=== PATIENT | female | born 1995 | race Caucasian/White ===

== ENCOUNTER 2016-10-29 19:19 | Emergency (ER) | payer BC ==
[2016-10-29 19:24] VITALS: TEMP 97.5
[2016-10-29] MEDS ORDERED: diphenhydrAMINE 50 MG/ML 1 ML VIAL IVP STA (19:57)
[2016-10-29] MEDS ORDERED: METOCLOPRAMIDE 5 MG/ML 2 ML VIAL IVP STA (19:57)
[2016-10-29] MEDS ORDERED: SODIUM CHLORIDE 0.9% 1,000 ML IV ONE (19:57)
--- NOTE | 2016-10-29 20:15 | ED ---
Headache HPI - General Chief Complaint: Headache Stated Complaint: Mirgraine /13 weeks Time Seen by Provider: 10/29/16 19:51 Source: RN notes reviewed Mode of arrival: ambulatory Limitations: no limitations - History of Present Illness Initial Comments: Patient is a 21-year-old female presents to the emergency room for evaluation of migraine headache. Patient states she has a history migraine headaches. Patient states she has been taking Tylenol [id number] with no relief of symptoms. Patient states she is having 5 out of 10 headache. Patient states this feels like her normal migraines. Patient denies neck pain. Patient denies fevers or chills. Patient states she can't get her migraine to go away. Patient does state she is 13 weeks . Patient is . Patient denies vaginal bleeding or abdominal pain. Patient denies chest pain or shortness of breath. Patient states she is nauseous but denies any vomiting. Patient denies recent head trauma. Patient denies changes in vision. - Related Data Home Medications Medication Instructions Recorded Confirmed Acetaminophen [Tylenol Extra 1,000 mg PO Q8H PRN 10/29/16 10/29/16 Strength] Gummies 2 tab PO DAILY 10/29/16 10/29/16 Allergies Allergy/AdvReac Type Severity Reaction Status Date / Time No Known Allergies Allergy Verified 10/29/16 19:40 Review of Systems ROS Statement: Those systems with pertinent positive or pertinent negative responses have been documented in the HPI. ROS Other: All systems not noted in ROS Statement are negative. Past Medical History Past Medical History: No Reported History Additional Past Medical History / Comment(s): MIGRAINES History of Any Multi-Drug Resistant Organisms: None Reported Past Surgical History: No Surgical Hx Reported Past Psychological History: Anxiety, Depression Smoking Status: Current every day smoker Past Alcohol Use History: None Reported Past Drug Use History: None Reported General Exam - General Exam Comments Initial Comments: sitting in exam room, no acute distress. Limitations: no limitations General appearance: alert, in no apparent distress Head exam: Present: atraumatic, normocephalic, normal inspection Eye exam: Present: normal appearance, PERRL, EOMI Pupils: Present: normal accommodation ENT exam: Present: normal exam Neck exam: Present: normal inspection Respiratory exam: Present: normal lung sounds bilaterally. Absent: respiratory distress Cardiovascular Exam: Present: regular rate, normal rhythm, normal heart sounds GI/Abdominal exam: Present: soft, normal bowel sounds. Absent: distended, tenderness, guarding, rebound, rigid Extremities exam: Present: normal inspection Back exam: Present: normal inspection Neurological exam: Present: alert, oriented X3, CN II-XII intact, normal gait Expanded Patient oriented to: Present: person, place, time Speech: Present: fluid speech Cranial nerves: EOM's Intact: Normal, Facial Sensation: Normal Sensory exam: Upper Extremity Light Touch: Normal, Lower Extremity Pin Prick: Normal Motor strength exam: RUE: 5, LUE: 5, RLE: 5, LLE: 5 Psychiatric exam: Present: normal affect, normal mood Skin exam: Present: warm, dry, intact, normal color. Absent: rash Course Vital Signs 10/29/16 10/29/16 19:20 21:24 Temperature 97.5 F L Pulse Rate 78 88 Respiratory 20 16 Rate Blood Pressure 113/56 99/52 O2 Sat by Pulse 100 Oximetry Medical Decision Making - Medical Decision Making patient is a 21-year-old female presents to the emergency room for evaluation of migraine headaches. Patient states this feels like her normal migraines. Patient given fluids and Reglan and Benadryl. Patient states she is feeling a lot better and would like to be discharged home. Return parameters discussed. Case discussed with Dr. Witt. Disposition Clinical Impression: Migraine Disposition: HOME SELF-CARE Condition: Good Instructions: Acute Headache (ED) Additional Instructions: Drink plenty of water. Take Tylenol as needed. Please follow up with primary care provider in 1-2 days. If any new symptom arises or symptoms worsen, return to ER as soon as possible. Referrals: Nidia Atkins DO [Primary Care Provider] - 1-2 days Time of Disposition: 20:54
[2016-10-29 21:50] VITALS: BP 99/52; PULSE 88; RESP 16
== END 2016-10-29 21:49 | disposition home or self-care (01) ==
LOC: EC 19:19
DX: O99.351 Diseases of the nervous system complicating pregnancy, first trimester (principal); G43.909 Migraine, unspecified, not intractable, without status migrainosus; O99.331 Smoking (tobacco) complicating pregnancy, first trimester; F17.200 Nicotine dependence, unspecified, uncomplicated; Z3A.13 13 weeks gestation of pregnancy; Z79.899 Other long term (current) drug therapy
CPT/HCPCS: 99282; 96374; 96375; 96361; J1200; J2765

== ENCOUNTER 2017-03-22 05:15 | Outpatient (CLI) | payer BC ==
[2017-03-22] MEDS ORDERED: LACTATED RINGERS 1,000 ML IV ONE (05:39)
[2017-03-22] MEDS ORDERED: BETAMET ACET-BETAMETH SOD PHOS 6 MG/ML VIAL IM SCH (05:45)
[2017-03-22] MEDS ORDERED: LACTATED RINGERS 1,000 ML IV SCH ×2 (05:45→08:30)
[2017-03-22 05:49] VITALS: RESP 16
[2017-03-22] MEDS: NIFEdipine 10 MG CAP PO PRN ×3 (05:56→06:40)
[2017-03-22 05:59] LABS: Appearance,Urine Clear (Clear); Bacteria,Urine Many /hpf; Bilirubin,Urine Negative (Negative); Glucose,Urine (UA) Negative (Negative); Ketones,Urine Negative (Negative); Leukocyte Esterase,Urine Large (Negative); Mucus,Urine Rare /hpf; Nitrite,Urine Negative (Negative); Particle Count 2502; Protein,Urine 1+ (Negative); RBC,Urine 2 /hpf (0-5); Specific Gravity,Urine 1.004 (1.001-1.035); Squamous Epithelial Cell,Urine 1 /hpf (0-4); UA Billing (MACRO vs. MICRO) MICRO; Urobilinogen,Urine <2.0 mg/dL (<2.0); WBC,Urine 52 /hpf (0-5)
[2017-03-22] MEDS ORDERED: ceFAZolin 2,000 MG in DEXTROSE/WATER 1 50ML.BAG IVPB STA (06:04)
[2017-03-22] MEDS ORDERED: ceFAZolin IN SWFI 2 GM/20 ML SYRINGE IVP ONE (06:15)
[2017-03-22] MEDS ORDERED: ACETAMINOPHEN TAB 500 MG TAB PO STA (06:32)
[2017-03-22 06:38] LABS: Basophils % (A) 0 %; CH 27.7; Eosinophils % (A) 0 %; HCT 34.3 % (34.0-46.0); Luc # (Auto) 0.21; Luc % (Auto) 1; Lymphocytes # (A) 2.1 k/uL (1.0-4.8); Lymphocytes % (A) 9 %; MCH 27.9 pg (25.0-35.0); MCHC 32.1 g/dL (31.0-37.0); MCV 86.8 fL (80.0-100.0); Mean Platelet Volume 9.3; Monocytes % (A) 4 %; Neutrophils # (A) 19.6 k/uL (1.3-7.7); Neutrophils % (A) 85 %; RBC 3.96 m/uL (3.80-5.40); WBC 22.9 k/uL (3.8-10.6); WBC (Perox) 24.86
[2017-03-22] MEDS ORDERED: cefTRIAXone IN SWFI 1,000 MG/10 ML SYRINGE IVP STA (07:12)
[2017-03-22] MEDS ORDERED: CALCIUM GLUCONATE 100 MG/ML 10 ML VIAL IV ONE (07:13)
[2017-03-22] MEDS ORDERED: MAGNESIUM SULFATE MG 6,000 MG in SODIUM CHLORIDE 0.9% 50 ML IVPB ONE (07:13)
[2017-03-22] MEDS ORDERED: MAGNESIUM SULFATE-WATER PMX 20 GM in WATER FOR INJECTION 1 500ML.BAG IV SCH (07:15)
[2017-03-22] MEDS ORDERED: MAGNESIUM SULFATE-D5W PMX 1 GM in DEXTROSE/WATER 1 100ML.BAG IVPB SCH (07:45)
[2017-03-22 08:24] VITALS: BP 117/59; PULSE 128; TEMP 98.8
--- NOTE | 2017-03-22 08:36 | P.HPOB ---
History of Present Illness H&P Date: 03/22/17 This is a 21-year-old white female 1 para 0 EDC 05/01/2017 at 34-2/7 weeks' gestation. Patient had intercourse last night at approximately 8:30. She woke this morning at approximate 5 AM with right flank pain, that radiated into the right lower abdomen. She presented to labor and delivery and was noted to be 1 cm dilated. Workup included a urinalysis which reveals small blood, large leukocyte esterase, 50 to WBCs, many bacteria. Patient had a low- grade temp on admission, 100.1, with a pulse of 110. She was given oral Tylenol. She was noted to be having uterine contractions and Procardia was given orally 3, at 0556, 0617, and 0640 hours. Despite the Procardia, cervical change was noted. Magnesium sulfate 6 g was given. Patient also received betamethasone at 0613 hours. Since that time, cervical change has been noted. Patient is currently 3 cm dilated, 70-80% effaced, -2 station, vertex presentation. Because our nursery will not accept newborns under the age of 35 weeks, the decision has made for maternal transfer. Past medical history is significant for anxiety and depression, as well as scoliosis. Past surgical history is negative. Social history patient is single, she admits to smoking cigarettes but stopped during . There is no alcohol or drug use. ALLERGIES none known. Current medications vitamins. Obstetrical history patient's blood type is A+, antibody screen negative. Rubella immune. VDRL testing, hepatitis B surface antigen, HIV testing all negative. Initial urine culture on 11/17/2016 is negative. One-hour Glucola 106. Group B strep cultures not yet performed. Pap smear was consistent with low grade ARACELY, plan is for repeat Pap smear . On exam this is a pleasant young female, 5 foot 4-1/2 inches, 182 pounds, blood pressure 126/85, pulse 104, crit temp 98.5, respirations 18. The general physical exam is within normal limits. The patient does have right flank pain to percussion. Abdomen is soft and nontender, infant is vertex to Peter's maneuvers. Maternal chest is clear, no murmur click or rub. Extremities reveal no edema. 2+ reflexes. Cervix is 3 cm dilated, 70% effaced, -2 station , vertex presentation. Uterine irritability is noted on the toco monitor. heart rate 160s with accelerations, consistent with reactive NST. Admitting labs include a white blood cell count of 22.9, hemoglobin 11.0, neutrophils 19.6. UA reveals large leukocyte esterase, many bacteria, 52 white blood cells, 1+ protein. Impression: 34-2/7 weeks intrauterine , right pyelonephritis, Rocephin and betamethasone given. Magnesium sulfate 6 g loading dose has been given, 2 g /h maintenance dose. Plan: I have discussed this case with Dr. Shepherd staff at [facility]. We will transfer the patient at this time. We will continue 2 g/h magnesium sulfate via transfer. Patient and her family are aware of our plan, and the recommendation for intensive care unit in the ascending that delivery occurs. The patient is currently comfortable, and I believe she is in stable condition for transfer at this time. Review of Systems Constitutional: Reports as per HPI Past Medical History Past Medical History: No Reported History Additional Past Medical History / Comment(s): MIGRAINES, anxiety and depression , scoliosis History of Any Multi-Drug Resistant Organisms: None Reported Past Surgical History: No Surgical Hx Reported Smoking Status: Never smoker Medications and Allergies Home Medications Medication Instructions Recorded Confirmed Type Gummies 2 tab PO DAILY 10/29/16 03/22/17 History Allergies Allergy/AdvReac Type Severity Reaction Status Date / Time No Known Allergies Allergy Verified 03/22/17 05:17 Exam - Vital Signs Vital signs: Vital Signs Temp Pulse Resp BP Pulse Ox 03/22/17 08:23 98.8 F 128 H 16 117/59 97 03/22/17 07:01 99.8 F H 03/22/17 06:41 103 H 16 124/65 03/22/17 06:26 100.1 F H 03/22/17 05:57 97 16 125/75 03/22/17 05:17 98.5 F 104 H 16 120/85 99 Intake and Output 03/21/17 03/22/17 03/22/17 22:59 06:59 14:59 Intake Total 1000 Output Total 250 Balance 1000 -250 Intake: Intake, IV Titration 1000 Amount Lactated Ringers 1,000 ml 1000 @ 999 mls/hr IV .Q1H1M ONE Rx#:[id number] Output: Urine 250 Other: # Voids 2 1 Weight 81.193 kg See dictation under HPI, please. Results Result Diagrams: 03/22/17 05:48 Abnormal Lab Results - Last 24 Hours (Table) 03/22/17 03/22/17 Range/Units 05:30 05:48 WBC 22.9 H (3.8-10.6) k/uL Hgb 11.0 L (11.4-16.0) gm/dL Neutrophils # 19.6 H (1.3-7.7) k/uL Urine Protein 1+ H (Negative) Urine Blood Small H (Negative) Ur Leukocyte Esterase Large H (Negative) Urine WBC 52 H (0-5) /hpf Urine Bacteria Many H (None) /hpf Urine Mucus Rare H (None) /hpf Assessment and Plan Plan: Betamethasone is given. Magnesium sulfate loading dose has been given, 2 g per hour. Rocephin has been given, 1 g. Maternal transfer to [facility] under the direction of Dr. Shepherd. All questions answered. Risks and benefits reviewed. Time with Patient: Greater than 30
== END 2017-03-22 08:58 | disposition short-term general hospital (02) ==
LOC: FBPOP 05:15
PROVIDERS: ATTEND Obstetrics & Gynecology
DX: O99.89 Other specified diseases and conditions complicating pregnancy, childbirth and the puerperium (principal); R10.31 Right lower quadrant pain; Z3A.34 34 weeks gestation of pregnancy
CPT/HCPCS: 59025; 99213; 96361; 96365; 96375; 85025; 81001; 87086; J0702; J0690; J0696; J3475 ×2

== ENCOUNTER 2017-12-14 08:22 | Emergency (ER) | payer BC, OTHER ==
[2017-12-14 08:31] VITALS: BP 117/80; TEMP 98.5
[2017-12-14] MEDS ORDERED: IPRATROPIUM-ALBUTEROL 3 ML NEB INHALATION STA (08:47)
--- NOTE | 2017-12-14 08:48 | ED ---
General Adult HPI - General Chief complaint: Upper Respiratory Infection Stated complaint: cough Time Seen by Provider: 12/14/17 08:42 Source: patient, RN notes reviewed Mode of arrival: ambulatory Limitations: no limitations - History of Present Illness Initial comments: Patient 22-year-old female presented to the emergency room today with a chief complaint of cough congestion over the last 2 weeks. She admits that time she' s had some sputum production. Patient denies any history of asthma. Patient denies any other complaints. Patient denies any recent fever, chills, shortness of breath, chest pain, back pain, abdominal pain, nausea or vomiting, numbness or tingling, headaches or visual changes, or any other complaints. - Related Data Home Medications Medication Instructions Recorded Confirmed Acetaminophen Tab [Tylenol Tab] 1,000 mg PO Q6HR PRN 12/14/17 12/14/17 Previous Rx's Medication Instructions Recorded Albuterol Inhaler [Ventolin Hfa 1 - 2 puff INHALATION Q4-6H PRN #1 12/14/17 Inhaler] inhaler Azithromycin [Zithromax Z-pack] 0 mg PO DIRECTED #6 tab 12/14/17 predniSONE 40 mg PO DAILY 5 Days tab 12/14/17 Allergies Allergy/AdvReac Type Severity Reaction Status Date / Time No Known Allergies Allergy Verified 12/14/17 08:47 Review of Systems ROS Statement: Those systems with pertinent positive or pertinent negative responses have been documented in the HPI. ROS Other: All systems not noted in ROS Statement are negative. Past Medical History Past Medical History: No Reported History Additional Past Medical History / Comment(s): MIGRAINES, anxiety and depression , scoliosis History of Any Multi-Drug Resistant Organisms: None Reported Past Surgical History: No Surgical Hx Reported Past Anesthesia/Blood Transfusion Reactions: No Reported Reaction Past Psychological History: Anxiety, Depression Smoking Status: Current every day smoker Past Alcohol Use History: None Reported Past Drug Use History: None Reported - Past Family History Mother Additional Family Medical History / Comment(s): Multiple Sclerosis General Exam - General Exam Comments Initial Comments: General: The patient is awake and alert, in no distress, and does not appear acutely ill. Eye: Pupils are equal, round and reactive to light, extra-ocular movements are intact. No nystagmus. There is normal conjunctiva bilaterally. No signs of icterus. Ears, nose, mouth and throat: There are moist mucous membranes and no oral lesions. Neck: The neck is supple, there is no tenderness or JVD. Cardiovascular: There is a regular rate and rhythm. No murmur, rub or gallop is appreciated. Respiratory: Mild expiratory wheeze bilaterally. respirations are non-labored, breath sounds are equal. No stridor, rales, or rhonchi. Musculoskeletal: Normal ROM, no tenderness. Sensation intact. Neurological: A&O x 3. CN II-XII intact, There are no obvious motor or sensory deficits. Coordination appears grossly intact. Speech is normal. Skin: Skin is warm and dry and no rashes or lesions are noted. Psychiatric: Cooperative, appropriate mood & affect, normal judgment. Limitations: no limitations Course Vital Signs 12/14/17 12/14/17 12/14/17 08:28 08:49 08:56 Temperature 98.5 F Pulse Rate 97 88 Respiratory 16 20 Rate Blood Pressure 117/80 O2 Sat by Pulse 98 Oximetry 12/14/17 09:03 Temperature Pulse Rate 80 Respiratory Rate Blood Pressure O2 Sat by Pulse Oximetry Medical Decision Making - Medical Decision Making Patient's chest x-rays negative for any sign of pneumonia. Patient resting comfortably. Does admit to improvement of her breathing treatments. Patient does have mild wheeze on expiration. Vitals are stable. Patient will be discharged home treated for bronchitis with azithromycin, steroids, and albuterol inhaler. Patient is advised follow-up family physician over the next 2 days returning if symptoms increase or worsen. Disposition Clinical Impression: Acute bronchitis Disposition: HOME SELF-CARE Condition: Good Instructions: Acute Bronchitis (ED) Additional Instructions: Please use medication as discussed. Please follow-up with family doctor in the next 2 days of symptoms have not improved. Please return to emergency room if the symptoms increase or worsen or for any other concerns. Prescriptions: Albuterol Inhaler [Ventolin Hfa Inhaler] 1 - 2 puff INHALATION Q4-6H PRN #1 inhaler PRN Reason: Cough Azithromycin [Zithromax Z-pack] 0 mg PO DIRECTED #6 tab predniSONE 40 mg PO DAILY 5 Days tab Is patient prescribed a controlled substance at d/c from ED?: No Referrals: Nidia Atkins DO [Primary Care Provider] - 1-2 days Time of Disposition: 09:24
[2017-12-14 08:49] VITALS: RESP 20
[2017-12-14 09:04] VITALS: PULSE 80
--- NOTE | 2017-12-14 09:06 | XR ---
EXAMINATION TYPE: XR chest 2V DATE OF EXAM: 12/14/2017 COMPARISON: 07/09/2014 HISTORY: Chest pain TECHNIQUE: Frontal and lateral views of the chest are obtained. FINDINGS: There is no focal air space opacity. No evidence for pneumothorax. No pleural effusion. The cardiac silhouette size is within normal limits. The osseous structures are grossly intact. IMPRESSION: 1. No acute cardiopulmonary process.
== END 2017-12-14 09:26 | disposition home or self-care (01) ==
LOC: EC 08:22
DX: J20.9 Acute bronchitis, unspecified (principal); F17.200 Nicotine dependence, unspecified, uncomplicated
CPT/HCPCS: 71046; 94640; 99283

== ENCOUNTER 2018-01-27 14:28 | Emergency (ER) | payer BC ==
[2018-01-27 14:33] VITALS: TEMP 98
--- NOTE | 2018-01-27 14:49 | ED ---
Female Urogenital HPI - General Chief complaint: Vaginal Bleeding Stated complaint: early /bleeding Time Seen by Provider: 01/27/18 14:37 Source: patient, RN notes reviewed, old records reviewed Mode of arrival: ambulatory Limitations: no limitations - History of Present Illness Initial comments: Patient is a 22-year-old female with treatment of vaginal bleeding. Patient states she had a positive test this Wednesday at the clinic. Her last menstrual period was January 15 or . Patient reports that she has had lower cramping and bleeding starting yesterday and today. Patient's had no fevers or chills. She denies any nausea or vomiting. She has complaints of diarrhea. Patient relates that her [employer] is Dr. Velázquez. She denies any other complaints at this time. - Related Data Home Medications Medication Instructions Recorded Confirmed Pedi Multivit No.19/Folic Acid 2 tab PO DAILY 01/27/18 01/27/18 [Children's Multi-Vit Gummies] Allergies Allergy/AdvReac Type Severity Reaction Status Date / Time No Known Allergies Allergy Verified 01/27/18 14:47 Review of Systems ROS Statement: Those systems with pertinent positive or pertinent negative responses have been documented in the HPI. ROS Other: All systems not noted in ROS Statement are negative. Past Medical History Past Medical History: No Reported History Additional Past Medical History / Comment(s): MIGRAINES, anxiety and depression , scoliosis History of Any Multi-Drug Resistant Organisms: None Reported Past Surgical History: No Surgical Hx Reported Past Anesthesia/Blood Transfusion Reactions: No Reported Reaction Past Psychological History: Anxiety, Depression Smoking Status: Current every day smoker Past Alcohol Use History: None Reported Past Drug Use History: None Reported - Past Family History Mother Additional Family Medical History / Comment(s): Multiple Sclerosis General Exam - General Exam Comments Initial Comments: This is a 22-year-old female. Alert and oriented. No significant distress. Limitations: no limitations General appearance: alert, in no apparent distress Head exam: Present: atraumatic, normocephalic, normal inspection Eye exam: Present: normal appearance, PERRL, EOMI. Absent: scleral icterus, conjunctival injection, periorbital swelling ENT exam: Present: normal exam, normal oropharynx, mucous membranes moist Neck exam: Present: normal inspection. Absent: tenderness, meningismus, lymphadenopathy Respiratory exam: Present: normal lung sounds bilaterally. Absent: respiratory distress, wheezes, rales, rhonchi, stridor Cardiovascular Exam: Present: regular rate, normal rhythm, normal heart sounds. Absent: systolic murmur, diastolic murmur, rubs, gallop, clicks GI/Abdominal exam: Present: soft, tenderness (suprapubic tenderness), normal bowel sounds. Absent: distended, guarding, rebound, rigid External exam: Present: normal external exam Speculum exam: Present: vaginal bleeding. Absent: normal speculum exam, erythema, vaginal discharge, cervical discharge, foreign body By manual exam: Present: normal by manual exam. Absent: cervical motion tenderness, adnexal tenderness, adnexal mass, uterine enlargement Neurological exam: Present: alert, oriented X3, CN II-XII intact Psychiatric exam: Present: normal affect, normal mood Skin exam: Present: warm, dry, intact, normal color. Absent: rash Course Vital Signs 01/27/18 14:32 Temperature 98.0 F Pulse Rate 86 Respiratory 20 Rate Blood Pressure 112/69 O2 Sat by Pulse 99 Oximetry Medical Decision Making - Medical Decision Making Patient is a 22-year-old female presents emergency department today with chief complaint of vaginal bleeding and cramping. She did have a positive test earlier this week. She is on how far along she is, last menstrual period was January 15- so very early . Patient hCG levels 22 at this time. She does have a positive blood type. Ultrasound was negative for intrauterine too early to exclude possibility of an ectopic . At this time Patient does have significant bleeding on exam. No adnexal tenderness noted. At this time Patient will be discharged with close follow-up with [employer]. As discussed repeating hCG level in 2 days. Patient agrees treatment plan will comply. Return parameters were discussed. - Lab Data Result diagrams: 01/27/18 14:50 Lab Results 01/27/18 01/27/18 01/27/18 Range/Units 14:50 14:50 14:50 WBC 6.7 (3.8-10.6) k/uL RBC 4.56 (3.80-5.40) m/uL Hgb 13.4 (11.4-16.0) gm/dL Hct 40.3 (34.0-46.0) % MCV 88.5 (80.0-100.0) fL MCH 29.3 (25.0-35.0) pg MCHC 33.1 (31.0-37.0) g/dL RDW 13.0 (11.5-15.5) % Plt Count 234 (150-450) k/uL Neutrophils % 70 % Lymphocytes % 21 % Monocytes % 5 % Eosinophils % 2 % Basophils % 0 % Neutrophils # 4.7 (1.3-7.7) k/uL Lymphocytes # 1.4 (1.0-4.8) k/uL Monocytes # 0.3 (0-1.0) k/uL Eosinophils # 0.1 (0-0.7) k/uL Basophils # 0.0 (0-0.2) k/uL HCG, Quant 22.1 mIU/mL Urine Color Urine Appearance (Clear) Urine pH (5.0-8.0) Ur Specific [place] (1.001-1.035) Urine Protein (Negative) Urine Glucose (UA) (Negative) Urine Ketones (Negative) Urine Blood (Negative) Urine Nitrite (Negative) Urine Bilirubin (Negative) Urine Urobilinogen (<2.0) mg/dL Ur Leukocyte Esterase (Negative) Urine RBC (0-5) /hpf Urine WBC (0-5) /hpf Ur Squamous Epith Cells (0-4) /hpf Urine Mucus (None) /hpf Blood Type A Positive Blood Type Recheck [facility] ONLY 01/27/18 Range/Units 14:50 WBC (3.8-10.6) k/uL RBC (3.80-5.40) m/uL Hgb (11.4-16.0) gm/dL Hct (34.0-46.0) % MCV (80.0-100.0) fL MCH (25.0-35.0) pg MCHC (31.0-37.0) g/dL RDW (11.5-15.5) % Plt Count (150-450) k/uL Neutrophils % % Lymphocytes % % Monocytes % % Eosinophils % % Basophils % % Neutrophils # (1.3-7.7) k/uL Lymphocytes # (1.0-4.8) k/uL Monocytes # (0-1.0) k/uL Eosinophils # (0-0.7) k/uL Basophils # (0-0.2) k/uL HCG, Quant mIU/mL Urine Color Yellow Urine Appearance Cloudy H (Clear) Urine pH 6.5 (5.0-8.0) Ur Specific [place] 1.021 (1.001-1.035) Urine Protein 1+ H (Negative) Urine Glucose (UA) Negative (Negative) Urine Ketones 1+ H (Negative) Urine Blood Large H (Negative) Urine Nitrite Negative (Negative) Urine Bilirubin Negative (Negative) Urine Urobilinogen <2.0 (<2.0) mg/dL Ur Leukocyte Esterase Negative (Negative) Urine RBC >182 H (0-5) /hpf Urine WBC 1 (0-5) /hpf Ur Squamous Epith Cells 10 H (0-4) /hpf Urine Mucus Few H (None) /hpf Blood Type Blood Type Recheck - Radiology Data Radiology results: report reviewed No visualized intrauterine at this time. Current differential considerations in the setting of a positive test exclude early , failed and I visualized ectopic . Recommend serial Patient she and ultrasound follow-up to ensure appearance a normal intrauterine with cardiac activity. There is around 1.2 cm lesion in the left adnexa adjacent to the left ovary which is should also be reassessed at that time. This suspected to represent hemorrhagic corpus luteum. Disposition Clinical Impression: Threatened miscarriage in early Disposition: HOME SELF-CARE Condition: Good Instructions: Threatened Miscarriage (ED) Additional Instructions: Patient advised to repeat hCG in the next 2 days. Return to emergency department if any alarming signs or symptoms occur. Is patient prescribed a controlled substance at d/c from ED?: No Referrals: Nidia Atkins DO [Primary Care Provider] - 1-2 days Elizabet Pitt MD [STAFF PHYSICIAN] - 1-2 days Arti Velázquez MD [STAFF PHYSICIAN] - 1-2 days Time of Disposition: 16:05
[2018-01-27 15:26] LABS: Basophils % (A) 0 %; Eosinophils # (A) 0.1 k/uL (0-0.7); Eosinophils % (A) 2 %; HCT 40.3 % (34.0-46.0); HGB 13.4 gm/dL (11.4-16.0); Lymphocytes # (A) 1.4 k/uL (1.0-4.8); Lymphocytes % (A) 21 %; MCH 29.3 pg (25.0-35.0); MCHC 33.1 g/dL (31.0-37.0); MCV 88.5 fL (80.0-100.0); Mean Platelet Volume 7.2; Monocytes # (A) 0.3 k/uL (0-1.0); Monocytes % (A) 5 %; Neutrophils # (A) 4.7 k/uL (1.3-7.7); Neutrophils % (A) 70 %; Platelet Count 234 k/uL (150-450); RBC 4.56 m/uL (3.80-5.40); WBC 6.7 k/uL (3.8-10.6)
[2018-01-27 15:42] LABS: Appearance,Urine Cloudy (Clear); Bilirubin,Urine Negative (Negative); Blood,Urine Large (Negative); Color,Urine Yellow; Glucose,Urine (UA) Negative (Negative); Ketones,Urine 1+ (Negative); Leukocyte Esterase,Urine Negative (Negative); Mucus,Urine Few /hpf; Nitrite,Urine Negative (Negative); PH, Urine 6.5 (5.0-8.0); Protein,Urine 1+ (Negative); RBC,Urine >182 /hpf (0-5); Specific Gravity,Urine 1.021 (1.001-1.035); Squamous Epithelial Cell,Urine 10 /hpf (0-4); Urobilinogen,Urine <2.0 mg/dL (<2.0); WBC,Urine 1 /hpf (0-5)
--- NOTE | 2018-01-27 16:00 | US ---
EXAMINATION TYPE: Ultrasound OB <= 14 weeks transvaginal DATE OF EXAM: 01/27/2018 COMPARISON: NONE CLINICAL HISTORY: 27-year-old female vaginal bleeding in . Pt states vaginal bleeding that s tarted today, pt states two recent abnormal periods (very light), most recent was 9-15-18, +home preg yaniv test EXAM PERFORMED: Transvaginal (TV) and Transabdominal (TA) FINDINGS: EXAM MEASUREMENTS: GESTATIONAL AGE / DATING Physician Established: Not yet established Dates by LMP: (1 weeks/5 days) EDC: 10/22/2018 Dates by First Scan: No prior Dates by Current Scan for: No IUP seen at this time MATERNAL ANATOMY Uterus: 6.0 x 3.2 x 3.7 cm Right Ovary: 2.1 x 1.5 x 1.2 cm Left Ovary: 2.0 x 1.4 x 1.4 cm Post CDS / Adnexa: Within left adnexa, just adjacent to left ovary is a hypoechoic lesion = 1.1 x 1.0 x 1.2 cm/ unknown etiology, possible corpus luteum. Presence of free fluid: No Presence of corpus luteal cyst: No GESTATION / SURVEY IUP: No IUP seen at this time Date of LMP: 01/15/2018 Beta HcG (if available): Not available at this time IMPRESSION: 1. No visualized intrauterine at this time. Current differential considerations in the sett ing of a positive test include early , failed , and nonvisualized ectopic . 2. Recommend serial beta hCG and ultrasound follow-up to ensure the appearance of a normal intrauteri ne with cardiac activity. 3. A round 1.2 cm lesion in the left adnexa adjacent to the left ovary should also be reassessed at t hat time. This is suspected to represent a hemorrhagic corpus luteum.
--- NOTE | 2018-01-27 16:08 | ED ---
Medical Decision Making - Medical Decision Making General completed to the chart to write a prescription for repeat HCG ab levels. - Lab Data Result diagrams: 01/27/18 14:50 Lab Results 01/27/18 01/27/18 01/27/18 Range/Units 14:50 14:50 14:50 WBC 6.7 (3.8-10.6) k/uL RBC 4.56 (3.80-5.40) m/uL Hgb 13.4 (11.4-16.0) gm/dL Hct 40.3 (34.0-46.0) % MCV 88.5 (80.0-100.0) fL MCH 29.3 (25.0-35.0) pg MCHC 33.1 (31.0-37.0) g/dL RDW 13.0 (11.5-15.5) % Plt Count 234 (150-450) k/uL Neutrophils % 70 % Lymphocytes % 21 % Monocytes % 5 % Eosinophils % 2 % Basophils % 0 % Neutrophils # 4.7 (1.3-7.7) k/uL Lymphocytes # 1.4 (1.0-4.8) k/uL Monocytes # 0.3 (0-1.0) k/uL Eosinophils # 0.1 (0-0.7) k/uL Basophils # 0.0 (0-0.2) k/uL HCG, Quant 22.1 mIU/mL Urine Color Urine Appearance (Clear) Urine pH (5.0-8.0) Ur Specific [place] (1.001-1.035) Urine Protein (Negative) Urine Glucose (UA) (Negative) Urine Ketones (Negative) Urine Blood (Negative) Urine Nitrite (Negative) Urine Bilirubin (Negative) Urine Urobilinogen (<2.0) mg/dL Ur Leukocyte Esterase (Negative) Urine RBC (0-5) /hpf Urine WBC (0-5) /hpf Ur Squamous Epith Cells (0-4) /hpf Urine Mucus (None) /hpf Blood Type A Positive Blood Type Recheck [facility] ONLY 01/27/18 Range/Units 14:50 WBC (3.8-10.6) k/uL RBC (3.80-5.40) m/uL Hgb (11.4-16.0) gm/dL Hct (34.0-46.0) % MCV (80.0-100.0) fL MCH (25.0-35.0) pg MCHC (31.0-37.0) g/dL RDW (11.5-15.5) % Plt Count (150-450) k/uL Neutrophils % % Lymphocytes % % Monocytes % % Eosinophils % % Basophils % % Neutrophils # (1.3-7.7) k/uL Lymphocytes # (1.0-4.8) k/uL Monocytes # (0-1.0) k/uL Eosinophils # (0-0.7) k/uL Basophils # (0-0.2) k/uL HCG, Quant mIU/mL Urine Color Yellow Urine Appearance Cloudy H (Clear) Urine pH 6.5 (5.0-8.0) Ur Specific [place] 1.021 (1.001-1.035) Urine Protein 1+ H (Negative) Urine Glucose (UA) Negative (Negative) Urine Ketones 1+ H (Negative) Urine Blood Large H (Negative) Urine Nitrite Negative (Negative) Urine Bilirubin Negative (Negative) Urine Urobilinogen <2.0 (<2.0) mg/dL Ur Leukocyte Esterase Negative (Negative) Urine RBC >182 H (0-5) /hpf Urine WBC 1 (0-5) /hpf Ur Squamous Epith Cells 10 H (0-4) /hpf Urine Mucus Few H (None) /hpf Blood Type Blood Type Recheck Disposition Clinical Impression: Threatened miscarriage in early Disposition: HOME SELF-CARE Condition: Good Instructions: Threatened Miscarriage (ED) Additional Instructions: Patient advised to repeat hCG in the next 2 days. Return to emergency department if any alarming signs or symptoms occur. Is patient prescribed a controlled substance at d/c from ED?: No Referrals: Elizabet Pitt MD [STAFF PHYSICIAN] - 1-2 days Arti Velázquez MD [STAFF PHYSICIAN] - 1-2 days Nidia Atkins DO [Primary Care Provider] - 1-2 days
[2018-01-27 16:38] VITALS: BP 108/52; PULSE 75; RESP 116
== END 2018-01-27 16:38 | disposition home or self-care (01) ==
LOC: EC 14:28
DX: O20.0 Threatened abortion (principal); O99.89 Other specified diseases and conditions complicating pregnancy, childbirth and the puerperium; R19.7 Diarrhea, unspecified; O99.331 Smoking (tobacco) complicating pregnancy, first trimester; F17.200 Nicotine dependence, unspecified, uncomplicated; Z3A.01 Less than 8 weeks gestation of pregnancy
CPT/HCPCS: 36415; 76801; 76817; 81001; 84702; 85025; 86900; 86901; 99284

== ENCOUNTER → 2018-01-29 | Outpatient (CLI) | payer BC | END | disposition home or self-care (01) | LOC: RADXRMAIN 14:43 | PROVIDERS: ATTEND Physician Assistant Medical | DX: Z53.9 Procedure and treatment not carried out, unspecified reason (principal) ==

== ENCOUNTER 2018-02-01 22:44 | Emergency (ER) | payer BC ==
[2018-02-01] MEDS ORDERED: MORPHINE SULFATE 4 MG/ML SYRINGE IV STA (23:07)
--- NOTE | 2018-02-01 23:44 | ED ---
Abdominal Pain HPI - General Chief Complaint: Abdominal Pain Stated Complaint: Pelvic Pain Time Seen by Provider: 02/01/18 22:50 Source: patient Mode of arrival: ambulatory Limitations: no limitations - History of Present Illness MD Complaint: abdominal pain Onset/Timin -: hour(s) Location: LLQ Radiation: none Migration to: no migration Severity: severe Quality: cramping, sharp Consistency: intermittent Improves With: nothing Worsens With: nothing Associated Symptoms: denies other symptoms - Related Data Home Medications Medication Instructions Recorded Confirmed Pedi Multivit No.19/Folic Acid 2 tab PO DAILY 01/27/18 02/01/18 [Children's Multi-Vit Gummies] Ibuprofen [Motrin Ib] 400 mg PO Q6HR PRN 02/01/18 02/01/18 Previous Rx's Medication Instructions Recorded Sulfamethox-Tmp 800-160Mg [Bactrim 1 each PO Q12HR #6 tab 02/02/18 Ds] Allergies Allergy/AdvReac Type Severity Reaction Status Date / Time No Known Allergies Allergy Verified 02/01/18 22:54 Review of Systems ROS Statement: Those systems with pertinent positive or pertinent negative responses have been documented in the HPI. ROS Other: All systems not noted in ROS Statement are negative. Constitutional: Denies: fever, chills Respiratory: Denies: cough, dyspnea Cardiovascular: Denies: chest pain, palpitations, edema Gastrointestinal: Reports: abdominal pain. Denies: nausea, vomiting, diarrhea, melena, hematochezia Genitourinary: Denies: dysuria, hematuria, discharge, abnormal menses Musculoskeletal: Denies: back pain Skin: Denies: rash Neurological: Denies: headache Hematological/Lymphatic: Denies: easy bleeding Past Medical History Past Medical History: No Reported History Additional Past Medical History / Comment(s): MIGRAINES, anxiety and depression , scoliosis History of Any Multi-Drug Resistant Organisms: None Reported Past Surgical History: No Surgical Hx Reported Past Anesthesia/Blood Transfusion Reactions: No Reported Reaction Past Psychological History: Anxiety, Depression Smoking Status: Current every day smoker Past Alcohol Use History: None Reported Past Drug Use History: None Reported - Past Family History Mother Additional Family Medical History / Comment(s): Multiple Sclerosis General Exam Limitations: no limitations General appearance: alert, in no apparent distress Respiratory exam: Present: normal lung sounds bilaterally. Absent: respiratory distress, wheezes, rales, rhonchi, stridor Cardiovascular Exam: Present: regular rate, normal rhythm, normal heart sounds. Absent: systolic murmur, diastolic murmur, rubs, gallop GI/Abdominal exam: Present: soft, normal bowel sounds. Absent: distended, tenderness, guarding, rebound, rigid, mass, pulsatile mass, hernia Extremities exam: Present: normal inspection, normal capillary refill. Absent: pedal edema, calf tenderness Back exam: Present: normal inspection. Absent: CVA tenderness (R), CVA tenderness (L) Neurological exam: Present: alert Skin exam: Present: warm, dry, intact, normal color. Absent: rash Course Vital Signs 02/01/18 02/02/18 22:46 00:06 Temperature 97.8 F Pulse Rate 100 62 Respiratory 18 18 Rate Blood Pressure 118/63 112/65 O2 Sat by Pulse 97 98 Oximetry Medical Decision Making - Lab Data Result diagrams: 02/01/18 23:20 02/01/18 23:20 Lab Results 02/01/18 02/01/18 02/01/18 Range/Units 22:10 23:20 23:20 WBC 11.5 H (3.8-10.6) k/uL RBC 5.15 (3.80-5.40) m/uL Hgb 14.7 (11.4-16.0) gm/dL Hct 45.5 (34.0-46.0) % MCV 88.4 (80.0-100.0) fL MCH 28.5 (25.0-35.0) pg MCHC 32.3 (31.0-37.0) g/dL RDW 12.9 (11.5-15.5) % Plt Count 281 (150-450) k/uL Neutrophils % 73 % Lymphocytes % 21 % Monocytes % 4 % Eosinophils % 1 % Basophils % 0 % Neutrophils # 8.4 H (1.3-7.7) k/uL Lymphocytes # 2.4 (1.0-4.8) k/uL Monocytes # 0.4 (0-1.0) k/uL Eosinophils # 0.1 (0-0.7) k/uL Basophils # 0.0 (0-0.2) k/uL Sodium 140 (137-145) mmol/L Potassium 3.7 (3.5-5.1) mmol/L Chloride 107 (98-107) mmol/L Carbon Dioxide 20 L (22-30) mmol/L Anion Gap 13 mmol/L BUN 13 (7-17) mg/dL Creatinine 0.71 (0.52-1.04) mg/dL Est GFR (CKD-EPI)AfAm >90 (>60 ml/min/1.73 sqM) Est GFR (CKD-EPI)NonAf >90 (>60 ml/min/1.73 sqM) Glucose 90 (74-99) mg/dL Calcium 10.8 H (8.4-10.2) mg/dL Total Bilirubin 0.6 (0.2-1.3) mg/dL AST 19 (14-36) U/L ALT 19 (9-52) U/L Alkaline Phosphatase 103 (38-126) U/L Total Protein 8.4 H (6.3-8.2) g/dL Albumin 4.9 (3.5-5.0) g/dL HCG, Quant <2.4 mIU/mL Urine Color Yellow Urine Appearance Cloudy H (Clear) Urine pH 6.0 (5.0-8.0) Ur Specific [place] 1.031 (1.001-1.035) Urine Protein 2+ H (Negative) Urine Glucose (UA) Negative (Negative) Urine Ketones 1+ H (Negative) Urine Blood Large H (Negative) Urine Nitrite Negative (Negative) Urine Bilirubin Negative (Negative) Urine Urobilinogen <2.0 (<2.0) mg/dL Ur Leukocyte Esterase Small H (Negative) Urine RBC >182 H (0-5) /hpf Urine WBC 16 H (0-5) /hpf Ur Squamous Epith Cells 41 H (0-4) /hpf Urine Bacteria Occasional H (None) /hpf Urine Mucus Many H (None) /hpf Urine Sperm Rare (None) /hpf Disposition Clinical Impression: Urinary tract infection Disposition: HOME SELF-CARE Condition: Good Instructions: Urinary Tract Infection in Women (ED) Prescriptions: Sulfamethox-Tmp 800-160Mg [Bactrim Ds] 1 each PO Q12HR #6 tab Is patient prescribed a controlled substance at d/c from ED?: No Referrals: Nidia Atkins DO [Primary Care Provider] - 1-2 days
[2018-02-01 23:46] LABS: Basophils % (A) 0 %; Eosinophils # (A) 0.1 k/uL (0-0.7); Eosinophils % (A) 1 %; HCT 45.5 % (34.0-46.0); HGB 14.7 gm/dL (11.4-16.0); Lymphocytes # (A) 2.4 k/uL (1.0-4.8); Lymphocytes % (A) 21 %; MCH 28.5 pg (25.0-35.0); MCHC 32.3 g/dL (31.0-37.0); MCV 88.4 fL (80.0-100.0); Mean Platelet Volume 7.2; Monocytes # (A) 0.4 k/uL (0-1.0); Monocytes % (A) 4 %; Neutrophils # (A) 8.4 k/uL (1.3-7.7); Neutrophils % (A) 73 %; Platelet Count 281 k/uL (150-450); RBC 5.15 m/uL (3.80-5.40); RDW 12.9 % (11.5-15.5); WBC 11.5 k/uL (3.8-10.6)
[2018-02-01 23:56] LABS: ALT 19 U/L (9-52); AST 19 U/L (14-36); Albumin 4.9 g/dL (3.5-5.0); Alkaline Phosphatase 103 U/L (38-126); Anion Gap 13 mmol/L; Blood Urea Nitrogen 13 mg/dL (7-17); Calcium 10.8 mg/dL (8.4-10.2); Carbon Dioxide 20 mmol/L (22-30); Chloride 107 mmol/L (98-107); Glucose 90 mg/dL (74-99); Potassium 3.7 mmol/L (3.5-5.1); Sodium 140 mmol/L (137-145); Total Bilirubin 0.6 mg/dL (0.2-1.3); Total Protein 8.4 g/dL (6.3-8.2)
[2018-02-02 00:12] LABS: HCG,Quantitative Serum <2.4 mIU/mL
[2018-02-02 00:17] LABS: Appearance,Urine Cloudy (Clear); Bacteria,Urine Occasional /hpf; Bilirubin,Urine Negative (Negative); Blood,Urine Large (Negative); Color,Urine Yellow; Glucose,Urine (UA) Negative (Negative); Ketones,Urine 1+ (Negative); Leukocyte Esterase,Urine Small (Negative); Mucus,Urine Many /hpf; Nitrite,Urine Negative (Negative); Protein,Urine 2+ (Negative); RBC,Urine >182 /hpf (0-5); Specific Gravity,Urine 1.031 (1.001-1.035); Sperm,Urine Rare /hpf; Squamous Epithelial Cell,Urine 41 /hpf (0-4); Urobilinogen,Urine <2.0 mg/dL (<2.0); WBC,Urine 16 /hpf (0-5)
--- NOTE | 2018-02-02 02:01 | CT ---
EXAMINATION TYPE: CT abdomen pelvis wo con DATE OF EXAM: 02/02/2018 COMPARISON: None HISTORY: No prior, pt s/p miscarriage 1 week, Left sided pelvic pain CT DLP: 300.10 mGycm Automated exposure control for dose reduction was used. TECHNIQUE: Helical acquisition of images was performed from the lung bases through the pelvis. FINDINGS: Lung bases are clear. There is no pleural effusion. Heart size is normal. There is no pericardial eff usion. Liver spleen pancreas gallbladder appear normal. Bile ducts are not dilated. Stomach appears normal. There is no adrenal mass. Kidneys have normal size and contour. I see no renal calculus. There is no hydronephrosis. Ureters ar e not dilated. Bladder distends smoothly. Uterus is anteverted. There is no free fluid in the pelvis. I see no pelvic mass. There is no inguinal hernia or adenopathy. There are inguinal lymph nodes that measure up to 11 mm. There is no mesenteric adenopathy or edema. There is small umbilical hernia. I see no intestinal wall thickening. There are no dilated loops. Appendix is not definitely seen. The re is no sign of appendicitis. The lumbar spine is intact. I see no bony destructive process. IMPRESSION: NEGATIVE CT SCAN OF THE ABDOMEN AND PELVIS.
[2018-02-02] MEDS ORDERED: SULFAMETHOX-TMP 800-160MG 1 EACH TAB PO STA (02:43)
[2018-02-02 02:56] VITALS: BP 101/66; PULSE 72; RESP 20; TEMP 97
[2018-02-02] MEDS ORDERED: HYDROcodone/APAP 5-325MG 1 EACH TAB PO STA (02:59)
== END 2018-02-02 03:12 | disposition home or self-care (01) ==
LOC: EC 22:44
DX: N39.0 Urinary tract infection, site not specified (principal); F17.200 Nicotine dependence, unspecified, uncomplicated
CPT/HCPCS: 36415; 74176; 80053; 81001; 84702; 85025; 96374; 99284

== ENCOUNTER 2018-05-10 16:56 | Emergency (ER) | payer BC ==
[2018-05-10 17:01] VITALS: RESP 18
[2018-05-10] MEDS ORDERED: SODIUM CHLORIDE 0.9% 1,000 ML IV ONE (17:04)
[2018-05-10 18:00] LABS: Appearance,Urine Cloudy (Clear); Bilirubin,Urine Negative (Negative); Blood,Urine Large (Negative); Color,Urine Light Red; Glucose,Urine (UA) Negative (Negative); Ketones,Urine Trace (Negative); Leukocyte Esterase,Urine Moderate (Negative); Mucus,Urine Occasional /hpf; Nitrite,Urine Negative (Negative); PH, Urine 6.5 (5.0-8.0); Protein,Urine 1+ (Negative); RBC,Urine >182 /hpf (0-5); Specific Gravity,Urine 1.017 (1.001-1.035); Squamous Epithelial Cell,Urine 1 /hpf (0-4); Urobilinogen,Urine <2.0 mg/dL (<2.0)
[2018-05-10 18:03] LABS: Basophils % (A) 0 %; Eosinophils # (A) 0.1 k/uL (0-0.7); Eosinophils % (A) 1 %; HCT 42.1 % (34.0-46.0); HGB 14.2 gm/dL (11.4-16.0); Lymphocytes # (A) 1.3 k/uL (1.0-4.8); Lymphocytes % (A) 19 %; MCH 30.2 pg (25.0-35.0); MCHC 33.7 g/dL (31.0-37.0); MCV 89.4 fL (80.0-100.0); Mean Platelet Volume 7.1; Monocytes # (A) 0.3 k/uL (0-1.0); Monocytes % (A) 4 %; Neutrophils # (A) 5.3 k/uL (1.3-7.7); Neutrophils % (A) 75 %; Platelet Count 214 k/uL (150-450); RBC 4.71 m/uL (3.80-5.40)
[2018-05-10 18:11] LABS: Partial Thromboplastin Time 25.7 sec (22.0-30.0)
[2018-05-10] MEDS ORDERED: ACETAMINOPHEN TAB 325 MG TAB PO STA (18:15)
--- NOTE | 2018-05-10 18:15 | ED ---
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 Patient states that she began experiencing vaginal bleeding 2 days ago small clots less than the size of quarter. Patient states she had pelvic cramping a small amount of low back pain consistent with her usual symptoms of menstruation. She states this is the exact time her period starts every month. Patient states that she normally doesn't have blood clots and was concerned and presented for evaluation. Patient denies any severe pelvic pain, diarrhea, melena or hematochezia. Patient denies any upper abdominal pain. She denies breast tenderness. Patient denies . Patient states she has had occasional nausea and vomiting but this has been ongoing since December denies any changes. Upon review of systems, patient does admit to mild dysuria. Denies hematuria, vaginal discharge or vaginal odor. Remainder of ROS negative , patient denies any recent fever, chills, shortness of breath, chest pain, back pain, abdominal pain, nausea or vomiting, numbness or tingling, dysuria or hematuria, constipation or diarrhea, headaches or visual changes, or any other complaints. I discussed triage note of dizziness. Patient states that she became anxious when she saw the clots the toilet and felt dizzy for a few seconds. She denies any additional episodes, denies any palpitations, chest pain, dyspnea or dyspnea on exertion. Denies syncopal episode. Upon arrival patient is well-appearing. Vital signs within acceptable limits. - Related Data Home Medications Medication Instructions Recorded Confirmed Loratadine [Claritin] 10 mg PO DAILY PRN 05/10/18 05/10/18 Previous Rx's Medication Instructions Recorded Cephalexin [Keflex] 500 mg PO Q12HR 5 Days #10 cap 05/10/18 Allergies Allergy/AdvReac Type Severity Reaction Status Date / Time No Known Allergies Allergy Verified 05/10/18 17:24 Review of Systems ROS Statement: Those systems with pertinent positive or pertinent negative responses have been documented in the HPI. ROS Other: All systems not noted in ROS Statement are negative. Past Medical History Past Medical History: No Reported History Additional Past Medical History / Comment(s): MIGRAINES, anxiety and depression , scoliosis History of Any Multi-Drug Resistant Organisms: None Reported Past Surgical History: No Surgical Hx Reported Past Anesthesia/Blood Transfusion Reactions: No Reported Reaction Past Psychological History: Anxiety, Depression Smoking Status: Current every day smoker Past Alcohol Use History: None Reported Past Drug Use History: None Reported - Past Family History Mother Additional Family Medical History / Comment(s): Multiple Sclerosis General Exam - General Exam Comments Initial Comments: General: The patient is awake and alert, in no distress, and does not appear acutely ill. Eye: +3 mm pupils are equal, round and reactive to light, extra-ocular movements are intact. No nystagmus. There is normal conjunctiva bilaterally. No signs of icterus. Ears, nose, mouth and throat: There are moist mucous membranes and no oral lesions. Neck: The neck is supple, there is no tenderness or JVD. Cardiovascular: There is a regular rate and rhythm. No murmur, rub or gallop is appreciated. Respiratory: Lungs are clear to auscultation, respirations are non-labored, breath sounds are equal. No wheezes, stridor, rales, or rhonchi. Gastrointestinal: No noted diaphoresis, jaundice, pallor, protecting postures or squirming. Symmetrical pigmentation of abdomen without signs of inflammation.. Umbilicus mildline, inverted without swelling. No dilated veins. Abdomen contour [ ], no noted abdominal distention. No visible masses. No peristalsis, aortic pulsations , or ventral hernia. Bowel sounds audible in all 4 quadrants, unremarkable. No friction rubs or venous hums. No epigastic, hepatic or abdominal bruits. No tenderness to light or deep palpation of the abdomen. There is mild tenderness to deep palpation, not light to the pelvic region, no localization of pain. Liver edge, not palpable. Spleen edge, right and left kidney not palpable. Superior bladder margin mildly tender. Special Testing: Negative [place], [place], [place], [place], cutaneous hyperesthesia. Iliopsoas and obturator tests negative bilaterally. Negative Heel Jar test. No CVA tenderness. Digital rectal exam deferred. Negative darling turners or cullens sign Musculoskeletal: Normal ROM, no tenderness. Strength 5/5. Sensation intact. Pulses equal bilaterally 2+. Neurological: A&O x 3. CN II-XII intact, There are no obvious motor or sensory deficits. Coordination appears grossly intact. Speech is normal. Skin: Skin is warm and dry and no rashes or lesions are noted. Psychiatric: Cooperative, appropriate mood & affect, normal judgment. Pelvic exam revealed: Shaved female hair pattern, no external lesions noted. Mucosa pink well rugated. Blood in the vaginal vault, no clots noted. Small amount of blood coming from cervical os. There is no adnexal or cervical motion tenderness. Limitations: no limitations Course Vital Signs 05/10/18 05/10/18 16:59 19:23 Temperature 97.6 F 98.2 F Pulse Rate 82 91 Respiratory 18 18 Rate Blood Pressure 112/72 100/62 O2 Sat by Pulse 98 98 Oximetry Medical Decision Making - Medical Decision Making Patient VS signs stable. Bleeding is consistent with monthly cycle, LMP . No evidence of heavy vaginal bleeding on pelvic exam. No adnexal or cervical motion tenderness concerning for acute process. Patient was minimally tender on palpation of the abdomen patient. At this time the patient's symptoms are consistent with menstruation. Patient was instructed to take ibuprofen Tylenol for pain management. Patient was instructed to return for any worsening or persistent symptoms. Cultures were obtained however there is no evidence of vaginal discharge. Patient refused treatment prophylactically for STD stating she has no concern. Patient did admit to dysuria and was given Keflex for treatment of UTI. There were no nitrates however with menstruation is difficult to analyze urinalysis for leukocyte esterase. Given patient's symptoms we will treat. Patient be started Keflex twice a day 5 days. Case discussed with Dr. Kern this time we feel patient symptoms consistent with menstruation. Patient be discharged with primary and [employer] follow-up. Patient requested with no upon discharge. This was provided. Patient discharged in stable condition appearing well - Lab Data Result diagrams: 05/10/18 17:18 05/10/18 17:18 Lab Results 05/10/18 05/10/18 05/10/18 Range/Units 17:18 17:18 17:18 WBC 7.0 (3.8-10.6) k/uL RBC 4.71 (3.80-5.40) m/uL Hgb 14.2 (11.4-16.0) gm/dL Hct 42.1 (34.0-46.0) % MCV 89.4 (80.0-100.0) fL MCH 30.2 (25.0-35.0) pg MCHC 33.7 (31.0-37.0) g/dL RDW 13.0 (11.5-15.5) % Plt Count 214 (150-450) k/uL Neutrophils % 75 % Lymphocytes % 19 % Monocytes % 4 % Eosinophils % 1 % Basophils % 0 % Neutrophils # 5.3 (1.3-7.7) k/uL Lymphocytes # 1.3 (1.0-4.8) k/uL Monocytes # 0.3 (0-1.0) k/uL Eosinophils # 0.1 (0-0.7) k/uL Basophils # 0.0 (0-0.2) k/uL PT (9.0-12.0) sec INR (<1.2) APTT (22.0-30.0) sec Sodium 141 (137-145) mmol/L Potassium 3.5 (3.5-5.1) mmol/L Chloride 105 (98-107) mmol/L Carbon Dioxide 24 (22-30) mmol/L Anion Gap 12 mmol/L BUN 8 (7-17) mg/dL Creatinine 0.71 (0.52-1.04) mg/dL Est GFR (CKD-EPI)AfAm >90 (>60 ml/min/1.73 sqM) Est GFR (CKD-EPI)NonAf >90 (>60 ml/min/1.73 sqM) Glucose 113 H (74-99) mg/dL Calcium 9.9 (8.4-10.2) mg/dL Total Bilirubin 0.9 (0.2-1.3) mg/dL AST 18 (14-36) U/L ALT 15 (9-52) U/L Alkaline Phosphatase 67 (38-126) U/L Total Protein 7.9 (6.3-8.2) g/dL Albumin 5.0 (3.5-5.0) g/dL Urine Color Urine Appearance (Clear) Urine pH (5.0-8.0) Ur Specific [place] (1.001-1.035) Urine Protein (Negative) Urine Glucose (UA) (Negative) Urine Ketones (Negative) Urine Blood (Negative) Urine Nitrite (Negative) Urine Bilirubin (Negative) Urine Urobilinogen (<2.0) mg/dL Ur Leukocyte Esterase (Negative) Urine RBC (0-5) /hpf Urine WBC (0-5) /hpf Ur Squamous Epith Cells (0-4) /hpf Urine Mucus (None) /hpf Urine HCG, Qual Not Detected (Not Detectd) Trichomonas Ag (Rapid) (Negative) 05/10/18 05/10/18 05/10/18 Range/Units 17:18 17:18 17:24 WBC (3.8-10.6) k/uL RBC (3.80-5.40) m/uL Hgb (11.4-16.0) gm/dL Hct (34.0-46.0) % MCV (80.0-100.0) fL MCH (25.0-35.0) pg MCHC (31.0-37.0) g/dL RDW (11.5-15.5) % Plt Count (150-450) k/uL Neutrophils % % Lymphocytes % % Monocytes % % Eosinophils % % Basophils % % Neutrophils # (1.3-7.7) k/uL Lymphocytes # (1.0-4.8) k/uL Monocytes # (0-1.0) k/uL Eosinophils # (0-0.7) k/uL Basophils # (0-0.2) k/uL PT 11.0 (9.0-12.0) sec INR 1.0 (<1.2) APTT 25.7 (22.0-30.0) sec Sodium (137-145) mmol/L Potassium (3.5-5.1) mmol/L Chloride (98-107) mmol/L Carbon Dioxide (22-30) mmol/L Anion Gap mmol/L BUN (7-17) mg/dL Creatinine (0.52-1.04) mg/dL Est GFR (CKD-EPI)AfAm (>60 ml/min/1.73 sqM) Est GFR (CKD-EPI)NonAf (>60 ml/min/1.73 sqM) Glucose (74-99) mg/dL Calcium (8.4-10.2) mg/dL Total Bilirubin (0.2-1.3) mg/dL AST (14-36) U/L ALT (9-52) U/L Alkaline Phosphatase (38-126) U/L Total Protein (6.3-8.2) g/dL Albumin (3.5-5.0) g/dL Urine Color Light Red Urine Appearance Cloudy H (Clear) Urine pH 6.5 (5.0-8.0) Ur Specific [place] 1.017 (1.001-1.035) Urine Protein 1+ H (Negative) Urine Glucose (UA) Negative (Negative) Urine Ketones Trace H (Negative) Urine Blood Large H (Negative) Urine Nitrite Negative (Negative) Urine Bilirubin Negative (Negative) Urine Urobilinogen <2.0 (<2.0) mg/dL Ur Leukocyte Esterase Moderate H (Negative) Urine RBC >182 H (0-5) /hpf Urine WBC 27 H (0-5) /hpf Ur Squamous Epith Cells 1 (0-4) /hpf Urine Mucus Occasional H (None) /hpf Urine HCG, Qual (Not Detectd) Trichomonas Ag (Rapid) Negative (Negative) Disposition Clinical Impression: Menstruation, Heavy menstrual bleeding, UTI (urinary tract infection) Disposition: HOME SELF-CARE Condition: Good Instructions: Menstruation (ED) Additional Instructions: Please use medication as discussed. Please follow-up with family doctor in the next 2 days. Please follow-up with your OBGYN in next 1-2 weeks. Please return to emergency room if the symptoms increase or worsen or for any other concerns, as discussed. Prescriptions: Cephalexin [Keflex] 500 mg PO Q12HR 5 Days #10 cap Is patient prescribed a controlled substance at d/c from ED?: No Referrals: Nidia Atkins DO [Primary Care Provider] - 1-2 days Time of Disposition: 18:15
[2018-05-10 18:25] LABS: ALT 15 U/L (9-52); AST 18 U/L (14-36); Alkaline Phosphatase 67 U/L (38-126); Anion Gap 12 mmol/L; Blood Urea Nitrogen 8 mg/dL (7-17); Calcium 9.9 mg/dL (8.4-10.2); Carbon Dioxide 24 mmol/L (22-30); Chloride 105 mmol/L (98-107); Glucose 113 mg/dL (74-99); Potassium 3.5 mmol/L (3.5-5.1); Sodium 141 mmol/L (137-145); Total Bilirubin 0.9 mg/dL (0.2-1.3); Total Protein 7.9 g/dL (6.3-8.2)
[2018-05-10 19:32] VITALS: BP 100/62; PULSE 91; TEMP 98.2
[2018-05-11 09:59] LABS: Chlamydia trachomatis rRNA Not detected (Not detected); Neisseria gonorrhoeae rRNA Not detected (Not detected)
== END 2018-05-10 19:23 | disposition home or self-care (01) ==
LOC: EC 16:56
DX: N92.0 Excessive and frequent menstruation with regular cycle (principal); N39.0 Urinary tract infection, site not specified; F17.200 Nicotine dependence, unspecified, uncomplicated
CPT/HCPCS: 36415; 80053; 81001; 81025; 85025; 85610; 85730; 87070; 87077; 87086; 87186; 87205; 87491; 87591; 87808; 96360; 99284

== ENCOUNTER 2018-05-12 17:09 | Emergency (ER) | payer BC ==
[2018-05-12] MEDS ORDERED: SODIUM CHLORIDE 0.9% 500 ML 500 ML IV STA (17:58)
[2018-05-12 19:06] LABS: Basophils % (A) 0 %; Eosinophils % (A) 0 %; HCT 39.6 % (34.0-46.0); HGB 13.5 gm/dL (11.4-16.0); Lymphocytes # (A) 1.1 k/uL (1.0-4.8); Lymphocytes % (A) 11 %; MCH 30.1 pg (25.0-35.0); MCV 88.7 fL (80.0-100.0); Mean Platelet Volume 7.2; Monocytes # (A) 0.3 k/uL (0-1.0); Monocytes % (A) 3 %; Neutrophils # (A) 8.6 k/uL (1.3-7.7); Neutrophils % (A) 85 %; Platelet Count 240 k/uL (150-450); RBC 4.46 m/uL (3.80-5.40); RDW 12.8 % (11.5-15.5); WBC 10.1 k/uL (3.8-10.6)
[2018-05-12 19:13] LABS: INR 1.1 (<1.2); Partial Thromboplastin Time 24.9 sec (22.0-30.0); Prothrombin Time 11.9 sec (9.0-12.0)
[2018-05-12 19:14] LABS: ALT 24 U/L (9-52); AST 17 U/L (14-36); Albumin 4.7 g/dL (3.5-5.0); Alkaline Phosphatase 62 U/L (38-126); Anion Gap 8 mmol/L; Blood Urea Nitrogen 9 mg/dL (7-17); Calcium 9.7 mg/dL (8.4-10.2); Carbon Dioxide 25 mmol/L (22-30); Chloride 107 mmol/L (98-107); Glucose 95 mg/dL (74-99); Magnesium 1.7 mg/dL (1.6-2.3); Potassium 3.7 mmol/L (3.5-5.1); Sodium 140 mmol/L (137-145); Total Bilirubin 0.6 mg/dL (0.2-1.3); Total Protein 7.6 g/dL (6.3-8.2)
--- NOTE | 2018-05-12 19:16 | XR ---
EXAMINATION TYPE: XR chest 2V DATE OF EXAM: 05/12/2018 COMPARISON: 12/14/2017 HISTORY: Chest pain TECHNIQUE: Frontal and lateral views of the chest are obtained. FINDINGS: Heart and mediastinum are normal. Lungs are clear. Diaphragm is normal. Bony thorax appear s normal. There are chest leads. IMPRESSION: Normal chest. No change.
[2018-05-12 19:40] LABS: Creatine Kinase MB 0.3 ng/mL (0.0-2.4)
--- NOTE | 2018-05-12 19:54 | ED ---
Recheck HPI - General Chief Complaint: Recheck/Abnormal Lab/Rx Stated Complaint: hand & facial numbness Time Seen by Provider: 05/12/18 17:40 Source: patient, RN notes reviewed, old records reviewed Mode of arrival: ambulatory Limitations: no limitations - History of Present Illness Initial Comments: 22 year old female with history of anxiety presents today with facial numbness, hand numbness while driving. She reports symptoms resolved coming to ED. She has no headache. She was seen in ED 2 days ago for heavy menstrual cycle. She has not been taking her antibiotics for Dx UTI at that time. She does report chest pain, denies shortness of breath, nausea and abdominal pain. - Related Data Home Medications Medication Instructions Recorded Confirmed Loratadine [Claritin] 10 mg PO DAILY PRN 05/10/18 05/12/18 Previous Rx's Medication Instructions Recorded Cephalexin [Keflex] 500 mg PO Q12HR 5 Days #10 cap 05/10/18 Allergies Allergy/AdvReac Type Severity Reaction Status Date / Time No Known Allergies Allergy Verified 05/12/18 17:33 Review of Systems ROS Statement: Those systems with pertinent positive or pertinent negative responses have been documented in the HPI. ROS Other: All systems not noted in ROS Statement are negative. Past Medical History Past Medical History: No Reported History Additional Past Medical History / Comment(s): MIGRAINES, anxiety and depression , scoliosis History of Any Multi-Drug Resistant Organisms: None Reported Past Surgical History: No Surgical Hx Reported Past Anesthesia/Blood Transfusion Reactions: No Reported Reaction Past Psychological History: Anxiety, Depression Smoking Status: Current every day smoker Past Alcohol Use History: None Reported Past Drug Use History: None Reported - Past Family History Mother Additional Family Medical History / Comment(s): Multiple Sclerosis General Exam - General Exam Comments Initial Comments: Well appearing 22 year old female, no distress. Limitations: no limitations General appearance: alert, in no apparent distress Head exam: Present: atraumatic, normocephalic, normal inspection Eye exam: Present: normal appearance, PERRL, EOMI. Absent: scleral icterus, conjunctival injection, periorbital swelling ENT exam: Present: normal exam, mucous membranes moist Neck exam: Present: normal inspection. Absent: tenderness, meningismus, lymphadenopathy Respiratory exam: Present: normal lung sounds bilaterally. Absent: respiratory distress, wheezes, rales, rhonchi, stridor Cardiovascular Exam: Present: regular rate, normal rhythm, normal heart sounds. Absent: systolic murmur, diastolic murmur, rubs, gallop, clicks GI/Abdominal exam: Present: soft, normal bowel sounds. Absent: distended, tenderness, guarding, rebound, rigid Extremities exam: Present: normal inspection, full ROM, normal capillary refill. Absent: tenderness, pedal edema, joint swelling, calf tenderness Back exam: Present: normal inspection Neurological exam: Present: alert, oriented X3, CN II-XII intact, normal gait, reflexes normal, other (Normal Finger to nose without overshooting. Normal sensationand motor function in face and extremities. ) Psychiatric exam: Present: normal affect, normal mood Course Vital Signs 05/12/18 05/12/18 17:24 20:18 Temperature 98.2 F 98.6 F Pulse Rate 85 73 Respiratory 20 16 Rate Blood Pressure 112/71 101/63 O2 Sat by Pulse 99 99 Oximetry Medical Decision Making - Medical Decision Making 22 year old female with anxiety and complaints of paresthesias that resolved. Blood work was normal, EKG and CXR are normal. She has had no return of symptoms. Discussed likely due to panic attack. Discussed close PCP follow up, given starter pack for keflex as she has not been taking UTI antibiotics. Disucssed return parameters. Patient requests work note. - Lab Data Result diagrams: 05/12/18 18:27 05/12/18 18:27 Lab Results 05/12/18 05/12/18 05/12/18 Range/Units 18:27 18:27 18:27 WBC 10.1 (3.8-10.6) k/uL RBC 4.46 (3.80-5.40) m/uL Hgb 13.5 (11.4-16.0) gm/dL Hct 39.6 (34.0-46.0) % MCV 88.7 (80.0-100.0) fL MCH 30.1 (25.0-35.0) pg MCHC 34.0 (31.0-37.0) g/dL RDW 12.8 (11.5-15.5) % Plt Count 240 (150-450) k/uL Neutrophils % 85 % Lymphocytes % 11 % Monocytes % 3 % Eosinophils % 0 % Basophils % 0 % Neutrophils # 8.6 H (1.3-7.7) k/uL Lymphocytes # 1.1 (1.0-4.8) k/uL Monocytes # 0.3 (0-1.0) k/uL Eosinophils # 0.0 (0-0.7) k/uL Basophils # 0.0 (0-0.2) k/uL PT (9.0-12.0) sec INR (<1.2) APTT (22.0-30.0) sec Sodium 140 (137-145) mmol/L Potassium 3.7 (3.5-5.1) mmol/L Chloride 107 (98-107) mmol/L Carbon Dioxide 25 (22-30) mmol/L Anion Gap 8 mmol/L BUN 9 (7-17) mg/dL Creatinine 0.65 (0.52-1.04) mg/dL Est GFR (CKD-EPI)AfAm >90 (>60 ml/min/1.73 sqM) Est GFR (CKD-EPI)NonAf >90 (>60 ml/min/1.73 sqM) Glucose 95 (74-99) mg/dL Calcium 9.7 (8.4-10.2) mg/dL Magnesium 1.7 (1.6-2.3) mg/dL Total Bilirubin 0.6 (0.2-1.3) mg/dL AST 17 (14-36) U/L ALT 24 (9-52) U/L Alkaline Phosphatase 62 (38-126) U/L Total Creatine Kinase 97 (30-135) U/L CK-MB (CK-2) 0.3 (0.0-2.4) ng/mL CK-MB (CK-2) Rel Index 0.3 Total Protein 7.6 (6.3-8.2) g/dL Albumin 4.7 (3.5-5.0) g/dL 05/12/18 Range/Units 18:27 WBC (3.8-10.6) k/uL RBC (3.80-5.40) m/uL Hgb (11.4-16.0) gm/dL Hct (34.0-46.0) % MCV (80.0-100.0) fL MCH (25.0-35.0) pg MCHC (31.0-37.0) g/dL RDW (11.5-15.5) % Plt Count (150-450) k/uL Neutrophils % % Lymphocytes % % Monocytes % % Eosinophils % % Basophils % % Neutrophils # (1.3-7.7) k/uL Lymphocytes # (1.0-4.8) k/uL Monocytes # (0-1.0) k/uL Eosinophils # (0-0.7) k/uL Basophils # (0-0.2) k/uL PT 11.9 (9.0-12.0) sec INR 1.1 (<1.2) APTT 24.9 (22.0-30.0) sec Sodium (137-145) mmol/L Potassium (3.5-5.1) mmol/L Chloride (98-107) mmol/L Carbon Dioxide (22-30) mmol/L Anion Gap mmol/L BUN (7-17) mg/dL Creatinine (0.52-1.04) mg/dL Est GFR (CKD-EPI)AfAm (>60 ml/min/1.73 sqM) Est GFR (CKD-EPI)NonAf (>60 ml/min/1.73 sqM) Glucose (74-99) mg/dL Calcium (8.4-10.2) mg/dL Magnesium (1.6-2.3) mg/dL Total Bilirubin (0.2-1.3) mg/dL AST (14-36) U/L ALT (9-52) U/L Alkaline Phosphatase (38-126) U/L Total Creatine Kinase (30-135) U/L CK-MB (CK-2) (0.0-2.4) ng/mL CK-MB (CK-2) Rel Index Total Protein (6.3-8.2) g/dL Albumin (3.5-5.0) g/dL 05/12/18 19:51 EKG performed in 1917 shows sinus regarding otherwise normal EKG. Ventricular rate of 55 bpm. WV interval is 156 most seconds. QS duration 80 ms. QT QTc is 43/419 ms. - Radiology Data Radiology results: report reviewed chest x-ray no changes Disposition Clinical Impression: Paresthesia Disposition: HOME SELF-CARE Condition: Good Instructions: Paresthesia (ED) Additional Instructions: follow-up with her primary care physician. Return to emergency department if any alarming signs or symptoms occur. Patient should start taking the antibiotic as prescribed for your urinary tract infection. Is patient prescribed a controlled substance at d/c from ED?: No Referrals: Nidia Atkins DO [Primary Care Provider] - 1-2 days Time of Disposition: 19:54
[2018-05-12] MEDS ORDERED: CEPHALEXIN 500MG STARTER PACK 4 CAP BTL PO STA (19:59)
[2018-05-12 20:23] VITALS: BP 101/63; PULSE 73; RESP 16; TEMP 98.6
== END 2018-05-12 20:18 | disposition home or self-care (01) ==
LOC: EC 17:09
DX: R20.2 Paresthesia of skin (principal); R07.9 Chest pain, unspecified; R20.0 Anesthesia of skin; F17.200 Nicotine dependence, unspecified, uncomplicated
CPT/HCPCS: 36415; 71046; 80053; 82550; 82553; 83735; 85025; 85610; 85730; 93005; 99284

== ENCOUNTER → 2018-07-12 | Outpatient (CLI) | payer BC | LOC: LABWHC1 14:51 | PROVIDERS: ATTEND Obstetrics & Gynecology | DX: O20.0 Threatened abortion (principal) | CPT/HCPCS: 36415; 84702; 86850; 86900; 86901 ==

== ENCOUNTER → 2018-07-14 | Outpatient (CLI) | payer BC | END | disposition home or self-care (01) | LOC: LABWHC1 16:04 | PROVIDERS: ATTEND Obstetrics & Gynecology | DX: O20.0 Threatened abortion (principal); Z3A.00 Weeks of gestation of pregnancy not specified | CPT/HCPCS: 36415; 84702 ==

== ENCOUNTER 2018-08-04 12:46 | Emergency (ER) | payer BC ==
[2018-08-04 14:36] LABS: Basophils % (A) 0 %; Eosinophils # (A) 0.1 k/uL (0-0.7); Eosinophils % (A) 1 %; HCT 37.5 % (34.0-46.0); Lymphocytes # (A) 1.3 k/uL (1.0-4.8); Lymphocytes % (A) 15 %; MCH 30.5 pg (25.0-35.0); MCHC 34.6 g/dL (31.0-37.0); MCV 88.2 fL (80.0-100.0); Mean Platelet Volume 7.1; Monocytes # (A) 0.3 k/uL (0-1.0); Monocytes % (A) 3 %; Neutrophils # (A) 6.5 k/uL (1.3-7.7); Neutrophils % (A) 79 %; Platelet Count 249 k/uL (150-450); RBC 4.25 m/uL (3.80-5.40); RDW 13.6 % (11.5-15.5); WBC 8.3 k/uL (3.8-10.6)
[2018-08-04 14:43] LABS: ALT 22 U/L (9-52); AST 20 U/L (14-36); Albumin 4.7 g/dL (3.5-5.0); Alkaline Phosphatase 61 U/L (38-126); Amylase 32 U/L (30-110); Anion Gap 9 mmol/L; Blood Urea Nitrogen 8 mg/dL (7-17); Calcium 10.1 mg/dL (8.4-10.2); Carbon Dioxide 26 mmol/L (22-30); Chloride 106 mmol/L (98-107); Glucose 98 mg/dL (74-99); Lipase 38 U/L (23-300); Potassium 4.1 mmol/L (3.5-5.1); Sodium 141 mmol/L (137-145); Total Bilirubin 0.6 mg/dL (0.2-1.3); Total Protein 7.6 g/dL (6.3-8.2)
--- NOTE | 2018-08-04 16:34 | ED ---
General Adult HPI - General Chief complaint: Vaginal Bleeding Stated complaint: Miscarriage, heavy bleeding Time Seen by Provider: 08/04/18 13:49 Source: patient, RN notes reviewed Mode of arrival: ambulatory Limitations: no limitations - History of Present Illness Initial comments: 23-year-old female presents to the emergency department for a chief complaint of vaginal bleeding. Patient states she was diagnosed with a missed about 2.5 weeks ago. Patient states she has had light vaginal bleeding since that time. However has started to have clots passed since this morning. Patient states she was about 9 weeks when this occurred however the fetus measured as 6 weeks so they believe she miscarried around that time. Patient's blood type is A+ according to past blood draws. Patient states she called her [employer] and office staff told her to come to the emergency department as she described her bleeding as heavy. Patient did not undergo a D&C. Patient has no other complaints at this time including shortness of breath, chest pain, abdominal pain, nausea or vomiting, headache, or visual changes. - Related Data Home Medications Medication Instructions Recorded Confirmed No Known Home Medications 08/04/18 08/04/18 Allergies Allergy/AdvReac Type Severity Reaction Status Date / Time No Known Allergies Allergy Verified 08/04/18 13:27 Review of Systems ROS Statement: Those systems with pertinent positive or pertinent negative responses have been documented in the HPI. ROS Other: All systems not noted in ROS Statement are negative. Past Medical History Past Medical History: No Reported History Additional Past Medical History / Comment(s): MIGRAINES, anxiety and depression, scoliosis History of Any Multi-Drug Resistant Organisms: None Reported Past Surgical History: No Surgical Hx Reported Past Anesthesia/Blood Transfusion Reactions: No Reported Reaction Past Psychological History: Anxiety, Depression Smoking Status: Current every day smoker Past Alcohol Use History: None Reported Past Drug Use History: None Reported - Past Family History Mother Additional Family Medical History / Comment(s): Multiple Sclerosis General Exam Limitations: no limitations General appearance: alert, in no apparent distress Head exam: Present: atraumatic, normocephalic, normal inspection Eye exam: Present: normal appearance, PERRL, EOMI. Absent: scleral icterus, conjunctival injection, periorbital swelling ENT exam: Present: normal exam, mucous membranes moist Neck exam: Present: normal inspection, full ROM. Absent: tenderness, meningismus, lymphadenopathy Respiratory exam: Present: normal lung sounds bilaterally. Absent: respiratory distress, wheezes, rales, rhonchi, stridor Cardiovascular Exam: Present: regular rate, normal rhythm, normal heart sounds. Absent: systolic murmur, diastolic murmur, rubs, gallop, clicks GI/Abdominal exam: Present: soft, normal bowel sounds. Absent: distended, tenderness, guarding, rebound, rigid External exam: Present: normal external exam. Absent: erythema, swelling, lesi ons, lacerations, ecchymosis Speculum exam: Present: vaginal bleeding (mild bleeding noted, no sereve hemorrhage). Absent: normal speculum exam, erythema, vaginal discharge, cervical discharge, foreign body, tissue, laceration By manual exam: Present: normal by manual exam. Absent: cervical motion tenderness, adnexal tenderness, adnexal mass, uterine enlargement, uterine tenderness Neurological exam: Present: alert, oriented X3, CN II-XII intact Psychiatric exam: Present: normal affect, normal mood Course Vital Signs 08/04/18 08/04/18 12:48 13:56 Temperature 97.3 F L Pulse Rate 94 88 Respiratory 18 18 Rate Blood Pressure 119/63 120/56 O2 Sat by Pulse 99 99 Oximetry Medical Decision Making - Medical Decision Making 23-year-old female presents to the emergency department for a chief complaint of vaginal bleeding. Patient had a missed miscarriage about 3 weeks ago when she was 9 weeks . Patient states she has had spotting since that time and it started stronger today. Patient states she was sent in by the OB staff due to bleeding concerns as she stated it was heavy over the phone. On exam there is mild vaginal bleeding however this is not concerning hemorrhage. CBC is unremarkable, hemoglobin stable at 13. CMP unremarkable. HCG Quant is 689 which has decreased from 5872 about 1.5 weeks ago.Ultrasound does show an intrauterine gestational sac present. At this time patient is hemodynamically stable. She will follow up with her [employer] for retained products. She will return here if she has any worsening symptoms. - Lab Data Result diagrams: 08/04/18 14:18 08/04/18 14:18 Lab Results 08/04/18 08/04/18 Range/Units 14:18 14:18 WBC 8.3 (3.8-10.6) k/uL RBC 4.25 (3.80-5.40) m/uL Hgb 13.0 (11.4-16.0) gm/dL Hct 37.5 (34.0-46.0) % MCV 88.2 (80.0-100.0) fL MCH 30.5 (25.0-35.0) pg MCHC 34.6 (31.0-37.0) g/dL RDW 13.6 (11.5-15.5) % Plt Count 249 (150-450) k/uL Neutrophils % 79 % Lymphocytes % 15 % Monocytes % 3 % Eosinophils % 1 % Basophils % 0 % Neutrophils # 6.5 (1.3-7.7) k/uL Lymphocytes # 1.3 (1.0-4.8) k/uL Monocytes # 0.3 (0-1.0) k/uL Eosinophils # 0.1 (0-0.7) k/uL Basophils # 0.0 (0-0.2) k/uL Sodium 141 (137-145) mmol/L Potassium 4.1 (3.5-5.1) mmol/L Chloride 106 (98-107) mmol/L Carbon Dioxide 26 (22-30) mmol/L Anion Gap 9 mmol/L BUN 8 (7-17) mg/dL Creatinine 0.61 (0.52-1.04) mg/dL Est GFR (CKD-EPI)AfAm >90 (>60 ml/min/1.73 sqM) Est GFR (CKD-EPI)NonAf >90 (>60 ml/min/1.73 sqM) Glucose 98 (74-99) mg/dL Calcium 10.1 (8.4-10.2) mg/dL Total Bilirubin 0.6 (0.2-1.3) mg/dL AST 20 (14-36) U/L ALT 22 (9-52) U/L Alkaline Phosphatase 61 (38-126) U/L Total Protein 7.6 (6.3-8.2) g/dL Albumin 4.7 (3.5-5.0) g/dL Amylase 32 (30-110) U/L Lipase 38 (23-300) U/L HCG, Quant 689.0 mIU/mL Disposition Clinical Impression: Missed Disposition: HOME SELF-CARE Condition: Good Instructions (If sedation given, give patient instructions): Miscarriage (ED) Additional Instructions: Please follow-up with Dr. Velázquez tomorrow. Please return here if you have any worsening symptoms. Is patient prescribed a controlled substance at d/c from ED?: No Referrals: Nidia Atkins DO [Primary Care Provider] - 1-2 days Arti Velázquez MD [STAFF PHYSICIAN] - 1-2 days Time of Disposition: 17:01
--- NOTE | 2018-08-04 16:38 | US ---
EXAMINATION TYPE: Transabdominal DATE OF EXAM: 08/04/2018 4:15 PM COMPARISON: NONE CLINICAL HISTORY: Pain. Patient states she was diagnosed with missed at beginning of July. Bleeding since then and now heavier. EXAM PERFORMED: Transabdominal EXAM MEASUREMENTS: GESTATIONAL AGE / DATING Physician Established: Not yet established Dates by LMP: (12 weeks/4 days) EDC: 02/12/19 Dates by First Scan: not available Dates by Current Scan for: sac only seen today MATERNAL ANATOMY Uterus: 7.7 x 5.1 x 5.4cm Right Ovary: 1.7 x 1.1 x 1.3cm Left Ovary: 2.4 x 1.3 x 1.5cm Post CDS / Adnexa: wnl GESTATION / SURVEY: MSD: 3.1 (8 weeks/0 days). Anechoic gestational sac visualized within uterine fundus. Date of LMP: 05/08/18 Beta HcG (if available): 689 IMPRESSION: INTRAUTERINE GESTATIONAL SAC; NO OTHER FINDINGS.
[2018-08-04 17:29] VITALS: BP 114/71; PULSE 82; RESP 16; TEMP 98.3
== END 2018-08-04 17:30 | disposition home or self-care (01) ==
LOC: EC 12:46
DX: O02.1 Missed abortion (principal); O99.331 Smoking (tobacco) complicating pregnancy, first trimester; F17.200 Nicotine dependence, unspecified, uncomplicated; Z3A.09 9 weeks gestation of pregnancy
CPT/HCPCS: 36415; 76801; 80053; 82150; 83690; 84702; 85025; 99284

== ENCOUNTER → 2018-08-10 | Outpatient (CLI) | payer BC ==
[2018-08-10 16:23] LABS: Basophils % (A) 0 %; Eosinophils # (A) 0.1 k/uL (0-0.7); Eosinophils % (A) 1 %; HCT 35.4 % (34.0-46.0); HGB 11.9 gm/dL (11.4-16.0); Lymphocytes % (A) 13 %; MCH 30.5 pg (25.0-35.0); MCHC 33.6 g/dL (31.0-37.0); MCV 90.9 fL (80.0-100.0); Mean Platelet Volume 7.1; Monocytes # (A) 0.4 k/uL (0-1.0); Monocytes % (A) 5 %; Neutrophils # (A) 6.1 k/uL (1.3-7.7); Neutrophils % (A) 80 %; Platelet Count 221 k/uL (150-450); RBC 3.89 m/uL (3.80-5.40); RDW 13.3 % (11.5-15.5); WBC 7.7 k/uL (3.8-10.6)
== END | disposition home or self-care (01) ==
LOC: LABPAT 15:03
PROVIDERS: ATTEND Obstetrics & Gynecology
DX: Z01.812 Encounter for preprocedural laboratory examination (principal); R87.613 High grade squamous intraepithelial lesion on cytologic smear of cervix (HGSIL)
CPT/HCPCS: 36415; 85025

== ENCOUNTER → 2018-08-11 | Outpatient (CLI) | payer BC | END | disposition home or self-care (01) | LOC: LABWHC1 15:59 | PROVIDERS: ATTEND Obstetrics & Gynecology | DX: O02.1 Missed abortion (principal); Z3A.00 Weeks of gestation of pregnancy not specified | CPT/HCPCS: 36415; 84702 ==

== ENCOUNTER → 2018-08-18 | Outpatient (CLI) | payer BC | LOC: LABWHC1 13:31 | PROVIDERS: ATTEND Obstetrics & Gynecology | DX: O02.1 Missed abortion (principal) | CPT/HCPCS: 36415; 84702 ==

== ENCOUNTER 2018-08-22 09:06 | Day surgery (SDC) | payer BC ==
[2018-08-17 15:28] VITALS: BMI 21.6
--- NOTE | 2018-08-18 17:26 | HP ---
HISTORY AND PHYSICAL DATE OF SURGERY: 08/22/2018 This is a 23-year-old female, 3, para 0-1-2-1, status post spontaneous miscarriage. Patient has a history of abnormal Pap smear. This was followed up with colposcopic evaluation and colposcopically directed biopsies. Pathology revealed high- grade ARACELY noted on the uterine cervix at 4 o'clock as well as 9 o'clock. After thorough discussion, we have elected to proceed with LEEP procedure in the operating room as well as endocervical curettage. The risks, benefits and alternatives have been discussed with the patient in detail. She declines the option for an office procedure. 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 PAST SURGICAL HISTORY: Colposcopically directed biopsies in 2018 and 2019. CURRENT MEDICATIONS: 1. Cymbalta 60 mg once daily. 2. Zofran 4 mg as needed for nausea, vomiting in . 3. Baldwin vitamins. ALLERGIES: NONE KNOWN. Seasonal allergies noted. FAMILY HISTORY: Significant for cervical cancer, multiple sclerosis, brain and breast cancers. OBSTETRIC HISTORY: Significant for normal spontaneous vaginal delivery in 2017 at 35 weeks' gestation. She has had 2 previous spontaneous miscarriages. SOCIAL HISTORY: Patient smokes E-cigarettes and tobacco every day. She denies alcohol or drug use. PHYSICAL EXAMINATION: This is a pleasant white female, 5 feet 5 inches, 136 pounds, blood pressure 100/60. BMI is 22. HEENT exam reveals no thyromegaly, no cervical lymphadenopathy. Neck is soft and supple. CHEST: Clear to auscultation in all parra anteriorly and posteriorly. ABDOMEN: Soft, nontender. No organosplenomegaly. No masses. Cardiac exam reveals regular rate and rhythm with no murmur, click or rub. Breasts are bilaterally symmetric to inspection with no skin dimpling, nipple discharge or axillary adenopathy. Extremities reveal no edema. There are good peripheral pulses. On pelvic exam, external genitalia is well estrogenized. Cervix is multiparous in appearance. Uterus is small, mobile, anteverted, anteflexed, smooth and nontender. Adnexa are negative to palpation bilaterally, small, mobile, and symmetric. 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 Decision for LEEP procedure in the operating room has been made. PLAN: We will proceed with LEEP procedure and ECC after the specimen is obtained. All risks, benefits and alternatives have been discussed with the patient in detail, including office procedure versus cold knife conization. Risks of surgery, aspiration, nerve damage or even have all been discussed. We will proceed with the procedure on August 22, at [facility]. MMPASCALEL / IJN: [id number] /
[~2018-08-22 09:06] MED LIST: DEXAMETHASONE SOD PHOSPHATE 10 MG/ML 1 ML VIAL IV ONE; LACTATED RINGERS 1,000 ML IV SCH; LIDOCAINE 1% 20 ML VIAL (10MG/ML) FOR IV START INTRADERMA PRN; MIDAZOLAM 2 MG/2 ML VIAL IV PRN; Pre Op ABX Message 1 EACH MISC MISCELLANE ONE; fentaNYL (PF) 50 MCG/ML 2 ML AMP IV PRN
[2018-08-22] MEDS ORDERED: ONDANSETRON 4 MG/2 ML VIAL IVP ONE (10:23)
[2018-08-22] MEDS ORDERED: ACETIC ACID 15 DROPS/ML DROPS MISCELLANE ONE ×2 (10:29→10:51)
[2018-08-22] MEDS ORDERED: LIDOCAINE 1% INJ 10MG/ML (20 ML MDV) ONE (10:31)
[2018-08-22] MEDS ORDERED: PROPOFOL 10 MG/ML 20 ML VIAL IV ONE (10:31)
[2018-08-22] MEDS ORDERED: KETOROLAC 30 MG/ML 1 ML VIAL ONE (10:31)
[2018-08-22] MEDS ORDERED: MIDAZOLAM 2 MG/2 ML VIAL ONE (10:31)
[2018-08-22] MEDS ORDERED: SUCCINYLCHOLINE CHLORIDE 100 MG/5 ML SYR IV ONE (10:31)
[2018-08-22] MEDS ORDERED: IODINE/POTASS IOD (LUGOLS) 14 ML BTL TOPICAL ONE (10:50)
--- NOTE | 2018-08-22 11:04 | P.OP ---
Date of Procedure: 08/22/18 Preoperative Diagnosis: High-grade squamous intraepithelial lesion of the cervix at 4:00 and 9:00 Postoperative Diagnosis: Pathology pending Procedure(s) Performed: LEEP , ECC Surgeon: Arti Velázquez Estimated Blood Loss (ml): 5 IV fluids (ml): 300 Urine output (ml): 100 Pathology: other (Cervical specimen sutured tagged at 12:00, endocervical curettings) Indications for Procedure: High-grade ARACELY at 4:00 and 9:00 Description of Procedure: Patient is brought to the operating room and a general anesthetic is administered without difficulty. She is placed in the dorsal lithotomy position. The appropriate timeout is performed. Beta hCG is 30, having come down from 500, status post spontaneous miscarriage. The cervix, vagina, perineal bodies are all prepped and draped in usual sterile fashion. Examination under anesthesia reveals a small anteverted uterus, negative adnexa bilaterally. Bladder is drained for 100 mL of clear yellow urine. Weighted speculum was placed into the vagina. Stay sutures are placed on the cervix, from 2:00 to 4:00 held laterally after tying, and from 8:00 to 10:00, tied and held laterally. Lugol solution is placed on the cervix and it is thoroughly inspected. A large loop is chosen, and the LEEP is carried out from 12:00 to 6:00. The specimen is tagged at 12:00 and sent to pathology for evaluation. An endocervical curettage was then performed, ECC sent to pathology under separate cover. Hemostasis is excellent. The cervical stump is then cauterized with a ball cautery. Monsel solution is placed on the surface of the cervix. Stay stitches are removed. All sponge needle and instrument counts correct at the end of the procedure. Patient is brought back to the recovery room in stable condition with vital signs 127/88, 100% O2 saturation, pulse 97. Toradol is given prior to leaving the operative suite. Patient will follow-up with me in the office in 2 weeks.
[2018-08-22 11:17] VITALS: TEMP 97.1
[2018-08-22] MEDS ORDERED: HYDROmorphone 1 MG/ML 1 ML SYRINGE IVP ONE ×2 (11:19→11:23)
[2018-08-22 12:20] VITALS: BP 107/73; PULSE 68; RESP 16
== END 2018-08-22 12:26 | disposition home or self-care (01) ==
LOC: OR 09:06
PROVIDERS: ATTEND Obstetrics & Gynecology
DX: N87.0 Mild cervical dysplasia (principal); N72 Inflammatory disease of cervix uteri; F41.9 Anxiety disorder, unspecified; F32.9 Major depressive disorder, single episode, unspecified; G43.909 Migraine, unspecified, not intractable, without status migrainosus; M41.9 Scoliosis, unspecified; F17.200 Nicotine dependence, unspecified, uncomplicated; K21.9 Gastro-esophageal reflux disease without esophagitis; Z79.899 Other long term (current) drug therapy
CPT/HCPCS: 88305; 88307; 84702; 57522; J2250; J2405; J2001; J1885; J1170; J0330; J2704

== ENCOUNTER 2019-05-21 21:24 | Emergency (ER) | payer BC ==
[2019-05-21 22:11] LABS: Appearance,Urine Cloudy (Clear); Bilirubin,Urine Negative (Negative); Blood,Urine Negative (Negative); Color,Urine Yellow; Glucose,Urine (UA) Negative (Negative); Ketones,Urine Trace (Negative); Leukocyte Esterase,Urine Negative (Negative); Mucus,Urine Many /hpf; Nitrite,Urine Negative (Negative); PH, Urine 6.5 (5.0-8.0); Protein,Urine 1+ (Negative); RBC,Urine 2 /hpf (0-5); Specific Gravity,Urine 1.039 (1.001-1.035); Squamous Epithelial Cell,Urine 9 /hpf (0-4); WBC,Urine 4 /hpf (0-5)
[2019-05-21] MEDS ORDERED: KETOROLAC 30 MG/ML 1 ML VIAL IVP STA (22:12)
[2019-05-21] MEDS ORDERED: SODIUM CHLORIDE 0.9% 1,000 ML IV ONE (22:12)
[2019-05-21 22:47] LABS: ALT 10 U/L (4-34); AST 21 U/L (14-36); African American GFR (CKD) >90 (>60 ml/min/1.73 sqM); Albumin 4.9 g/dL (3.5-5.0); Alkaline Phosphatase 49 U/L (38-126); Anion Gap 9 mmol/L; Blood Urea Nitrogen 12 mg/dL (7-17); Calcium 9.8 mg/dL (8.4-10.2); Carbon Dioxide 26 mmol/L (22-30); Chloride 105 mmol/L (98-107); Glucose 96 mg/dL (74-99); Non-African American GFR(CKD) >90 (>60 ml/min/1.73 sqM); Potassium 3.6 mmol/L (3.5-5.1); Sodium 140 mmol/L (137-145); Total Bilirubin 0.6 mg/dL (0.2-1.3); Total Protein 8.2 g/dL (6.3-8.2)
--- NOTE | 2019-05-21 23:02 | US ---
EXAM: US Pelvis Transabdominal and Transvaginal, Complete and US Duplex Arterial/Venous of the Pelvis, Complete CLINICAL HISTORY: Pelvic pain. TECHNIQUE: Real-time complete transabdominal and transvaginal pelvic ultrasound with image documentation. Transvaginal imaging was used for better evaluation of the endometrium and adnexa. Real-time duplex ultrasound scan of the arterial and venous flow of the pelvis with color Doppler flow and spectral waveform analysis. COMPARISON: 08/04/2018. FINDINGS: Uterus/cervix: The uterus measures 7 x 3.5 x 4.7 cm. Endometrial stripe measures 0.5 cm. No myometrial mass. Right ovary: The right ovary measures 2.8 x 1.6 x 1.6 cm. Flow is demonstrated to both ovaries. No torsion. Left ovary: Left ovary measures 2.6 x 1.8 x 1.8 cm Free fluid: Minimal simple free fluid within the posterior cul-de-sac. Bladder: Unremarkable as visualized. Wall is normal thickness for degree of distention. IMPRESSION: Flow through ovaries is noted. Minimal simple free fluid within the posterior cul-de-sac.
[2019-05-21 23:03] LABS: Basophils # (A) 0.1 k/uL (0-0.2); Basophils % (A) 1 %; Eosinophils % (A) 0 %; HCT 40.9 % (34.0-46.0); Lymphocytes # (A) 1.9 k/uL (1.0-4.8); Lymphocytes % (A) 23 %; MCH 30.3 pg (25.0-35.0); MCHC 34.2 g/dL (31.0-37.0); MCV 88.6 fL (80.0-100.0); Mean Platelet Volume 7.6; Monocytes # (A) 0.4 k/uL (0-1.0); Monocytes % (A) 5 %; Neutrophils # (A) 5.8 k/uL (1.3-7.7); Neutrophils % (A) 70 %; Platelet Count 260 k/uL (150-450); RBC 4.62 m/uL (3.80-5.40); RDW 12.4 % (11.5-15.5); WBC 8.3 k/uL (3.8-10.6)
--- NOTE | 2019-05-21 23:20 | ED ---
Abdominal Pain HPI - General Chief Complaint: Abdominal Pain Stated Complaint: abd pain Time Seen by Provider: 05/21/19 21:35 Source: patient Mode of arrival: ambulatory Limitations: no limitations - History of Present Illness Initial Comments: 23-year-old female patient presents to the emergency department today for evaluation of left pelvic abdominal pain. Patient states this started approximately 2 weeks ago. Patient states over the last couple days the pain is worsened. She states occasionally the pain does radiate through to the back. States that she's had decreased urine output. States she feels dehydrated. States she does have intermittent nausea with no vomiting. She does report intermittent low grade fever. States she did have a negative test at home. States she is having very small amount of vaginal discharge which was not odorous. Denies any concern for sexually transmitted infections. Patient denies any recent rash, shortness breath, chest pain, diarrhea, constipation, back pain, numbness, tingling, dizziness, weakness, hematuria, dysuria, urinary urgency, urinary frequency, headache, visual changes, or any other complaints. - Related Data Home Medications Medication Instructions Recorded Confirmed DULoxetine HCL [Cymbalta] 60 mg PO HS 08/17/18 08/22/18 Allergies Allergy/AdvReac Type Severity Reaction Status Date / Time No Known Allergies Allergy Verified 05/21/19 21:28 Review of Systems ROS Statement: Those systems with pertinent positive or pertinent negative responses have been documented in the HPI. ROS Other: All systems not noted in ROS Statement are negative. Past Medical History Past Medical History: No Reported History Additional Past Medical History / Comment(s): SCOLIOSIS History of Any Multi-Drug Resistant Organisms: None Reported Past Surgical History: No Surgical Hx Reported Additional Past Surgical History / Comment(s): leep Past Anesthesia/Blood Transfusion Reactions: No Reported Reaction Additional Past Anesthesia/Blood Transfusion Reaction / Comment(s): NEVER HAD ANESTH. Past Psychological History: Anxiety, Depression Smoking Status: Current every day smoker Past Alcohol Use History: None Reported Past Drug Use History: Marijuana - Past Family History Mother Additional Family Medical History / Comment(s): Multiple Sclerosis. Cervical cancer General Exam Limitations: no limitations General appearance: alert, in no apparent distress, other (This is a well- developed, well-nourished adult female patient in no acute distress. Vital signs upon presentation are temperature 97.8F, pulse 98, respirations 18, blood pressure 123/75, pulse ox 100% on room air.) Eye exam: Present: normal appearance, PERRL, EOMI. Absent: scleral icterus, conjunctival injection, periorbital swelling ENT exam: Present: normal exam, normal oropharynx, mucous membranes moist Respiratory exam: Present: normal lung sounds bilaterally. Absent: respiratory distress, wheezes, rales, rhonchi, stridor Cardiovascular Exam: Present: regular rate, normal rhythm, normal heart sounds. Absent: systolic murmur, diastolic murmur, rubs, gallop, clicks GI/Abdominal exam: Present: soft, tenderness (Left lower quadrant), normal bowel sounds. Absent: distended, guarding, rebound, rigid Back exam: Present: normal inspection. Absent: CVA tenderness (R), CVA tenderness (L) Neurological exam: Present: alert, oriented X3, CN II-XII intact Psychiatric exam: Present: normal affect, normal mood Skin exam: Present: warm, dry, intact, normal color. Absent: rash Course Vital Signs 05/21/19 05/21/19 21:25 23:29 Temperature 97.8 F 98.1 F Pulse Rate 98 70 Respiratory 18 16 Rate Blood Pressure 123/75 116/74 O2 Sat by Pulse 100 98 Oximetry Medical Decision Making - Medical Decision Making 23-year-old female patient presents to the emergency department today for evaluation of left pelvic pain. Physical examination reveals tenderness over the left lower quadrant. Labs reviewed and were unremarkable. Urinalysis shows no sign of infection. She is negative for . Ultrasound of the pelvis was performed and showed no acute abnormalities. She'll be discharged follow up with her primary care physician for recheck in 1-2 days. Return parameters were discussed in detail. She verbalizes understanding and agrees with this plan. - Lab Data Result diagrams: 05/21/19 22:28 05/21/19 22:28 Lab Results 05/21/19 05/21/19 05/21/19 Range/Units 21:59 21:59 22:28 WBC 8.3 (3.8-10.6) k/uL RBC 4.62 (3.80-5.40) m/uL Hgb 14.0 (11.4-16.0) gm/dL Hct 40.9 (34.0-46.0) % MCV 88.6 (80.0-100.0) fL MCH 30.3 (25.0-35.0) pg MCHC 34.2 (31.0-37.0) g/dL RDW 12.4 (11.5-15.5) % Plt Count 260 (150-450) k/uL Neutrophils % 70 % Lymphocytes % 23 % Monocytes % 5 % Eosinophils % 0 % Basophils % 1 % Neutrophils # 5.8 (1.3-7.7) k/uL Lymphocytes # 1.9 (1.0-4.8) k/uL Monocytes # 0.4 (0-1.0) k/uL Eosinophils # 0.0 (0-0.7) k/uL Basophils # 0.1 (0-0.2) k/uL Sodium (137-145) mmol/L Potassium (3.5-5.1) mmol/L Chloride (98-107) mmol/L Carbon Dioxide (22-30) mmol/L Anion Gap mmol/L BUN (7-17) mg/dL Creatinine (0.52-1.04) mg/dL Est GFR (CKD-EPI)AfAm (>60 ml/min/1.73 sqM) Est GFR (CKD-EPI)NonAf (>60 ml/min/1.73 sqM) Glucose (74-99) mg/dL Calcium (8.4-10.2) mg/dL Total Bilirubin (0.2-1.3) mg/dL AST (14-36) U/L ALT (4-34) U/L Alkaline Phosphatase (38-126) U/L Total Protein (6.3-8.2) g/dL Albumin (3.5-5.0) g/dL Lipase (23-300) U/L Urine Color Yellow Urine Appearance Cloudy H (Clear) Urine pH 6.5 (5.0-8.0) Ur Specific [place] 1.039 H (1.001-1.035) Urine Protein 1+ H (Negative) Urine Glucose (UA) Negative (Negative) Urine Ketones Trace H (Negative) Urine Blood Negative (Negative) Urine Nitrite Negative (Negative) Urine Bilirubin Negative (Negative) Urine Urobilinogen 4.0 (<2.0) mg/dL Ur Leukocyte Esterase Negative (Negative) Urine RBC 2 (0-5) /hpf Urine WBC 4 (0-5) /hpf Ur Squamous Epith Cells 9 H (0-4) /hpf Urine Mucus Many H (None) /hpf Urine HCG, Qual Not Detected (Not Detectd) 05/21/19 Range/Units 22:28 WBC (3.8-10.6) k/uL RBC (3.80-5.40) m/uL Hgb (11.4-16.0) gm/dL Hct (34.0-46.0) % MCV (80.0-100.0) fL MCH (25.0-35.0) pg MCHC (31.0-37.0) g/dL RDW (11.5-15.5) % Plt Count (150-450) k/uL Neutrophils % % Lymphocytes % % Monocytes % % Eosinophils % % Basophils % % Neutrophils # (1.3-7.7) k/uL Lymphocytes # (1.0-4.8) k/uL Monocytes # (0-1.0) k/uL Eosinophils # (0-0.7) k/uL Basophils # (0-0.2) k/uL Sodium 140 (137-145) mmol/L Potassium 3.6 (3.5-5.1) mmol/L Chloride 105 (98-107) mmol/L Carbon Dioxide 26 (22-30) mmol/L Anion Gap 9 mmol/L BUN 12 (7-17) mg/dL Creatinine 0.70 (0.52-1.04) mg/dL Est GFR (CKD-EPI)AfAm >90 (>60 ml/min/1.73 sqM) Est GFR (CKD-EPI)NonAf >90 (>60 ml/min/1.73 sqM) Glucose 96 (74-99) mg/dL Calcium 9.8 (8.4-10.2) mg/dL Total Bilirubin 0.6 (0.2-1.3) mg/dL AST 21 (14-36) U/L ALT 10 (4-34) U/L Alkaline Phosphatase 49 (38-126) U/L Total Protein 8.2 (6.3-8.2) g/dL Albumin 4.9 (3.5-5.0) g/dL Lipase 79 (23-300) U/L Urine Color Urine Appearance (Clear) Urine pH (5.0-8.0) Ur Specific [place] (1.001-1.035) Urine Protein (Negative) Urine Glucose (UA) (Negative) Urine Ketones (Negative) Urine Blood (Negative) Urine Nitrite (Negative) Urine Bilirubin (Negative) Urine Urobilinogen (<2.0) mg/dL Ur Leukocyte Esterase (Negative) Urine RBC (0-5) /hpf Urine WBC (0-5) /hpf Ur Squamous Epith Cells (0-4) /hpf Urine Mucus (None) /hpf Urine HCG, Qual (Not Detectd) - Radiology Data Radiology results: report reviewed Ultrasound was obtained. Report was reviewed in its entirety. Impression by Dr. Stanton shows posterior ovaries is noted. Minimal simple free fluid within the posterior cul-de-sac. Disposition Clinical Impression: Pelvic pain Disposition: HOME SELF-CARE Condition: Good Instructions (If sedation given, give patient instructions): Pelvic Pain in Women (ED) Additional Instructions: Increase fluids. Rest. Follow-up with your primary care physician or manager flight operations for further evaluation. Return to the emergency department immed iately for any new, worsening, or concerning symptoms. Is patient prescribed a controlled substance at d/c from ED?: No Referrals: Nidia Atkins DO [Primary Care Provider] - 1-2 days Time of Disposition: 23:20
[2019-05-21 23:30] VITALS: BP 116/74; PULSE 70; RESP 16; TEMP 98.1
== END 2019-05-21 23:30 | disposition home or self-care (01) ==
LOC: EC 21:24
DX: R10.2 Pelvic and perineal pain (principal); R11.0 Nausea; R50.9 Fever, unspecified; N89.8 Other specified noninflammatory disorders of vagina; M54.9 Dorsalgia, unspecified; R39.12 Poor urinary stream; F32.9 Major depressive disorder, single episode, unspecified; F41.9 Anxiety disorder, unspecified; F17.200 Nicotine dependence, unspecified, uncomplicated; Z79.899 Other long term (current) drug therapy
CPT/HCPCS: 36415; 80053; 83690; 85025; 81001; 81025; 93975; 76830; 99284; 96374; 96361; J1885

== ENCOUNTER 2019-12-02 07:26 | Emergency (ER) | payer BC ==
[2019-12-02 07:37] VITALS: RESP 18; TEMP 98.2
[2019-12-02] MEDS ORDERED: SODIUM CHLORIDE 0.9% 1,000 ML IV ONE (08:03)
[2019-12-02] MEDS ORDERED: METOCLOPRAMIDE 5 MG/ML 2 ML VIAL IVP STA ×2 (08:04→08:16)
[2019-12-02 08:15] LABS: Basophils % (A) 0 %; Eosinophils # (A) 0.1 k/uL (0-0.7); Eosinophils % (A) 1 %; HCT 38.9 % (34.0-46.0); HGB 12.9 gm/dL (11.4-16.0); Lymphocytes # (A) 1.7 k/uL (1.0-4.8); Lymphocytes % (A) 15 %; MCH 29.6 pg (25.0-35.0); MCV 89.5 fL (80.0-100.0); Mean Platelet Volume 7.2; Monocytes # (A) 0.4 k/uL (0-1.0); Monocytes % (A) 4 %; Neutrophils # (A) 8.8 k/uL (1.3-7.7); Neutrophils % (A) 78 %; Platelet Count 254 k/uL (150-450); RBC 4.35 m/uL (3.80-5.40); RDW 13.6 % (11.5-15.5); WBC 11.3 k/uL (3.8-10.6)
[2019-12-02 08:17] LABS: Appearance,Urine Clear (Clear); Bilirubin,Urine Negative (Negative); Blood,Urine Negative (Negative); Color,Urine Yellow; Glucose,Urine (UA) Negative (Negative); Ketones,Urine Negative (Negative); Leukocyte Esterase,Urine Negative (Negative); Nitrite,Urine Negative (Negative); PH, Urine 6.5 (5.0-8.0); Protein,Urine Negative (Negative); Specific Gravity,Urine 1.014 (1.001-1.035); Urobilinogen,Urine <2.0 mg/dL (<2.0)
[2019-12-02 08:26] LABS: ALT 12 U/L (4-34); AST 23 U/L (14-36); African American GFR (CKD) >90 (>60 ml/min/1.73 sqM); Albumin 4.4 g/dL (3.5-5.0); Alkaline Phosphatase 47 U/L (38-126); Anion Gap 8 mmol/L; Blood Urea Nitrogen 7 mg/dL (7-17); Calcium 9.4 mg/dL (8.4-10.2); Carbon Dioxide 22 mmol/L (22-30); Chloride 105 mmol/L (98-107); Glucose 96 mg/dL (74-99); Non-African American GFR(CKD) >90 (>60 ml/min/1.73 sqM); Sodium 135 mmol/L (137-145); Total Bilirubin 0.4 mg/dL (0.2-1.3); Total Protein 7.3 g/dL (6.3-8.2)
--- NOTE | 2019-12-02 08:27 | ED ---
General Adult HPI - General Chief complaint: Abdominal Pain Stated complaint: nausea/diarrhea/back pain Time Seen by Provider: 12/02/19 07:39 Source: patient, RN notes reviewed, old records reviewed Mode of arrival: ambulatory Limitations: no limitations - History of Present Illness Initial comments: 24-year-old female patient presents to ED for evaluation nausea vomiting diarrhea for the last 4 days. Patient is a who is approximately 11 weeks from last menstrual period as well as ultrasound confirming intrauterine approximately one month ago. Patient was that she has been taking vitamins. Patient has followed up with ENDS BREAKAGE CLERK as well. Denies any vaginal bleeding. Reports that she has some pressure in her suprap ubic region denies any focal area of pain. She also reports a mild generalized achiness of her back. Denies any focal area of pain or any recent falls or trauma. Systemic: Pt denies fatigue, fever/chills, rash. Pt denies weakness, night sweats, weight loss. Neuro: Pt denies headache, visual disturbances, syncope or pre-syncope. HEENT: Pt denies ocular discharge or irritation, otalgia, rhinorrhea, pharyngitis or notable lymphadenopathy. Cardiopulmonary: Pt denies chest pain, SOB, heart palpitations, dyspnea on exertion. : Pt denies dysuria, burning w/ urination, frequency/urgency. Denies new onset urinary or bowel incontinence. MSK: Pt denies myalgia, loss of strength or function in extremities. Neuro: Pt denies new onset weakness, paresthesias. - Related Data Home Medications Medication Instructions Recorded Confirmed DULoxetine HCL [Cymbalta] 60 mg PO HS 08/17/18 08/22/18 Previous Rx's Medication Instructions Recorded Doxylamine/Pyridoxine HCl (B6) 1 tablet PO Q24HR PRN 14 Days #14 12/02/19 [Rupesh Haque 10-10 mg Tablet] tablet. Allergies Allergy/AdvReac Type Severity Reaction Status Date / Time No Known Allergies Allergy Verified 12/02/19 07:32 Review of Systems ROS Statement: Those systems with pertinent positive or pertinent negative responses have been documented in the HPI. ROS Other: All systems not noted in ROS Statement are negative. Past Medical History Past Medical History: No Reported History Additional Past Medical History / Comment(s): SCOLIOSIS History of Any Multi-Drug Resistant Organisms: None Reported Past Surgical History: No Surgical Hx Reported Additional Past Surgical History / Comment(s): leep Past Anesthesia/Blood Transfusion Reactions: No Reported Reaction Additional Past Anesthesia/Blood Transfusion Reaction / Comment(s): NEVER HAD ANESTH. Past Psychological History: Anxiety, Depression Smoking Status: Vaper Past Alcohol Use History: None Reported Past Drug Use History: None Reported, Marijuana - Past Family History Mother Additional Family Medical History / Comment(s): Multiple Sclerosis. Cervical cancer General Exam - General Exam Comments Initial Comments: Constitutional: NAD, AOX3, Pt has pleasant affect. HEENT: NC/AT, trachea midline, neck supple, no lymphadenopathy. External ears appear normal, without discharge. Mucous membranes moist. Eyes PERRLA, EOM intact. There is no scleral icterus. No pallor noted. Cardiopulmonary: RRR, no murmurs, rubs or gallops, no JVD noted. Lungs CTAB in anterior and posterior parra. No peripheral edema. Abdominal exam: Abdomen soft and non-distended. Abdomen nontender to palpation in all 4 quadrants. no guarding or rigidity.Bowel sounds active in LLQ. No hepatosplenomegaly. No ecchymosis Neuro: CN II-XII grossly intact. No nuchal rigidity. No raccon eyes, no virgen sign. MSK: Full active ROM in upper and lower extremities, 5/5 stregnth. Lumbar spine is nontender to palpation of skin changes. Limitations: no limitations Course Vital Signs 12/02/19 07:33 Temperature 98.2 F Pulse Rate 74 Respiratory 18 Rate Blood Pressure 106/69 O2 Sat by Pulse 99 Oximetry Medical Decision Making - Medical Decision Making 24-year-old female patient is a approximately 11 weeks gestation present ED chief complaint of nausea vomiting diarrhea for the last 4-5 days. Reports that she has been having loose stools. Denies any blood. Reports that she has some mild pressure in her suprapubic region. She also reports that she has had some mild generalized low back achiness. Denies any recent falls or trauma. D enies focal area of pain. Denies red flag symptoms. Laboratory investigations are unremarkable. Patient is tolerating oral intake. Patient was offered ultrasound and is declining. Patient will be discharged with follow-up with primary care provider and ENDS BREAKAGE CLERK will return here if condition worsens. Case discussed with Dr. Kern. - Lab Data Result diagrams: 12/02/19 08:05 12/02/19 08:05 Lab Results 12/02/19 12/02/19 12/02/19 Range/Units 08:05 08:05 08:05 WBC 11.3 H (3.8-10.6) k/uL RBC 4.35 (3.80-5.40) m/uL Hgb 12.9 (11.4-16.0) gm/dL Hct 38.9 (34.0-46.0) % MCV 89.5 (80.0-100.0) fL MCH 29.6 (25.0-35.0) pg MCHC 33.0 (31.0-37.0) g/dL RDW 13.6 (11.5-15.5) % Plt Count 254 (150-450) k/uL Neutrophils % 78 % Lymphocytes % 15 % Monocytes % 4 % Eosinophils % 1 % Basophils % 0 % Neutrophils # 8.8 H (1.3-7.7) k/uL Lymphocytes # 1.7 (1.0-4.8) k/uL Monocytes # 0.4 (0-1.0) k/uL Eosinophils # 0.1 (0-0.7) k/uL Basophils # 0.0 (0-0.2) k/uL Sodium 135 L (137-145) mmol/L Potassium 4.0 (3.5-5.1) mmol/L Chloride 105 (98-107) mmol/L Carbon Dioxide 22 (22-30) mmol/L Anion Gap 8 mmol/L BUN 7 (7-17) mg/dL Creatinine 0.45 L (0.52-1.04) mg/dL Est GFR (CKD-EPI)AfAm >90 (>60 ml/min/1.73 sqM) Est GFR (CKD-EPI)NonAf >90 (>60 ml/min/1.73 sqM) Glucose 96 (74-99) mg/dL Calcium 9.4 (8.4-10.2) mg/dL Total Bilirubin 0.4 (0.2-1.3) mg/dL AST 23 (14-36) U/L ALT 12 (4-34) U/L Alkaline Phosphatase 47 (38-126) U/L Total Protein 7.3 (6.3-8.2) g/dL Albumin 4.4 (3.5-5.0) g/dL Urine Color Yellow Urine Appearance Clear (Clear) Urine pH 6.5 (5.0-8.0) Ur Specific [place] 1.014 (1.001-1.035) Urine Protein Negative (Negative) Urine Glucose (UA) Negative (Negative) Urine Ketones Negative (Negative) Urine Blood Negative (Negative) Urine Nitrite Negative (Negative) Urine Bilirubin Negative (Negative) Urine Urobilinogen <2.0 (<2.0) mg/dL Ur Leukocyte Esterase Negative (Negative) Disposition Clinical Impression: Nausea vomiting and diarrhea, Disposition: HOME SELF-CARE Condition: Stable Instructions (If sedation given, give patient instructions): (ED), Gastroenteritis (ED) Additional Instructions: Follow-up with primary care provider and agricultural consultant tomorrow. Return here if any worsening symptoms. Prescriptions: Doxylamine/Pyridoxine HCl (B6) [Rupesh Haque 10-10 mg Tablet] 1 tablet PO Q24HR PRN 14 Days #14 tablet. PRN Reason: Nausea Is patient prescribed a controlled substance at d/c from ED?: No Referrals: Nidia Atkins DO [Primary Care Provider] - 1-2 days
[2019-12-02 09:08] VITALS: BP 103/68; PULSE 62
== END 2019-12-02 09:12 | disposition home or self-care (01) ==
LOC: EC 07:26
DX: O21.9 Vomiting of pregnancy, unspecified (principal); O99.89 Other specified diseases and conditions complicating pregnancy, childbirth and the puerperium; R19.7 Diarrhea, unspecified; R10.30 Lower abdominal pain, unspecified; O99.331 Smoking (tobacco) complicating pregnancy, first trimester; F17.290 Nicotine dependence, other tobacco product, uncomplicated; O99.341 Other mental disorders complicating pregnancy, first trimester; F41.9 Anxiety disorder, unspecified; F32.9 Major depressive disorder, single episode, unspecified; Z79.899 Other long term (current) drug therapy; Z3A.11 11 weeks gestation of pregnancy
CPT/HCPCS: 36415; 80053; 81003; 84702; 85025; 96360; 99284

== ENCOUNTER 2020-05-30 18:05 | Outpatient (CLI) | payer BC ==
[2020-05-30 20:02] VITALS: BP 119/72; PULSE 84; RESP 16; TEMP 98.4
--- NOTE | 2020-06-18 18:45 | P.MSEPDOC ---
Presenting Problems - Arrival Data Date of Arrival on Unit: 05/30/20 Time of Arrival on Unit: 18:00 Mode of Transport: Ambulatory - Complaint OB-Reason for Admission/Chief Complaint: Possible Onset of Labor Comment: patient arrived to triage at 1805 stating that she has been ramo since this morning Medical History - Information : 4 Para: 1 Term: 1 : 0 Abortions: Spontaneous or Elective: 2 Number of Living Children: 1 - Gestational Age Gestational Age by HALI (wks/days): 37 Weeks and 1 Days Review of Systems - Review of Systems Constitutional: No problems Breast: No problems ENT: No problems Cardiovascular: No problems Respiratory: No problems Gastrointestinal: No problems Genitourinary: No problems Musculoskeletal: No problems Neurological: No problems Skin: No problems Vital Signs - Temperature Temperature: 98.4 F Temperature Source: Temporal Artery Scan - Pulse Right Brachial Pulse Rate: 84 Pulse Assessment Method: Automatic Cuff - Respirations Respiratory Rate: 16 Oxygen Delivery Method: Room Air O2 Sat by Pulse Oximetry: 99 - Blood Pressure Right Arm Blood Pressure: 119/72 Blood Pressure Mean: 87 Blood Pressure Source: Automatic Cuff Medical Screen Scoring (Pre) - Cervical Exam Dilation: 1-3 cm = 1 Effacement: More than 50% = 2 Membranes: Intact - Uterine Contractions Frequency: > 5 minutes apart = 1 Duration: N/A Intensity: N/A - Maternal Vital Signs Maternal Temperature: N/A Maternal Blood Pressure: N/A Signs of Preeclampsia: N/A Maternal Respirations: N/A - Maternal Trauma Maternal Trauma: N/A - Assessment - Baby A Baseline FHR: 145 Heart Rate - NICHD Category: Category II (Indeterminate) = 3 NST: Reactive Position: N/A Station: N/A - Total Score - Baby A Total Score - Baby A: 7 - Total Score - Baby B Total Score - Baby B: 4 - Total Score - Baby C Total Score - Baby C: 4 - Level of Risk - Baby A Level of Risk - Baby A: Medium (6-9) - Level of Risk - Baby B Level of Risk - Baby B: Low (0-5) - Level of Risk - Baby C Level of Risk - Baby C: Low (0-5) Physician Notification (Pre) - Physician Notified Physician Notified Date: 05/30/20 Physician Notified Time: 19:35 New Order Received: Yes - Notification Comment Comment: report given on maternal status. no change with cervical exam eince inital, contacting irregularly, reactive NST and vitals WNL. Patient approved for discharge. Disposition - Disposition OB Disposition: Discharge to home Discharge Date: 05/30/20 Discharge Time: 19:47 I agree with the RN Medical Screening Exam: Yes Case reviewed; plan agreed upon as documented in EMR&OBIX.: Yes Diagnosis: rule out labor
== END 2020-05-30 19:47 | disposition home or self-care (01) ==
LOC: FBPOP 18:05
PROVIDERS: ATTEND Obstetrics & Gynecology
DX: O47.1 False labor at or after 37 completed weeks of gestation (principal); Z3A.37 37 weeks gestation of pregnancy
CPT/HCPCS: 59025; 99213

== ENCOUNTER 2020-06-02 23:00 | Outpatient (CLI) | payer BC ==
[2020-06-03 00:57] VITALS: BP 125/70; PULSE 88; RESP 16; TEMP 97
--- NOTE | 2020-06-13 08:09 | P.MSEPDOC ---
Presenting Problems - Arrival Data Date of Arrival on Unit: 06/02/20 Time of Arrival on Unit: 23:00 Mode of Transport: Wheelchair - Complaint OB-Reason for Admission/Chief Complaint: Possible Onset of Labor Medical History - Information : 4 Para: 1 Term: 0 : 1 Abortions: Spontaneous or Elective: 2 Number of Living Children: 1 - Gestational Age Gestational Age by HALI (wks/days): 37 Weeks and 5 Days - History Complications: Smoker Review of Systems - Review of Systems Constitutional: No problems Breast: No problems ENT: No problems Cardiovascular: No problems Respiratory: No problems Gastrointestinal: No problems Genitourinary: No problems Musculoskeletal: No problems Neurological: No problems Skin: No problems Vital Signs - Temperature Temperature: 97 F Temperature Source: Temporal Artery Scan - Pulse Right Brachial Pulse Rate: 88 Pulse Assessment Method: Automatic Cuff - Respirations Respiratory Rate: 16 Oxygen Delivery Method: Room Air O2 Sat by Pulse Oximetry: 100 - Blood Pressure Right Arm Blood Pressure: 125/70 Blood Pressure Mean: 88 Blood Pressure Source: Automatic Cuff Medical Screen Scoring (Pre) - Cervical Exam Dilation: 1-3 cm = 1 Membranes: Intact - Uterine Contractions Frequency: > or = 36 weeks =2 Duration: N/A Intensity: N/A - Maternal Vital Signs Maternal Temperature: N/A Maternal Blood Pressure: N/A Signs of Preeclampsia: N/A Maternal Respirations: N/A - Maternal Trauma Maternal Trauma: N/A - Assessment - Baby A Baseline FHR: 140 Heart Rate - NICHD Category: Category I (Normal) = 0 NST: Reactive Position: N/A Station: N/A - Total Score - Baby A Total Score - Baby A: 3 - Total Score - Baby B Total Score - Baby B: 3 - Total Score - Baby C Total Score - Baby C: 3 - Level of Risk - Baby A Level of Risk - Baby A: Low (0-5) - Level of Risk - Baby B Level of Risk - Baby B: Low (0-5) - Level of Risk - Baby C Level of Risk - Baby C: Low (0-5) Physician Notification (Pre) - Physician Notified Physician Notified Date: 06/03/20 Physician Notified Time: 00:16 New Order Received: Yes - Notification Comment Comment: Dr. Velázquez given report on pt. Pt c/o. VS WNL. Reactive NST. Vag exam of 3/90/-2. and 3.5/90/-2 after one hour. Orders recieved perform vag exam after additional hour if. change made to admit pt to room. If no change after 1 hour to discharge pt to home. Disposition - Disposition OB Disposition: Physician follow up in office, Discharge to home Discharge Date: 06/03/20 Discharge Time: 00:48 I agree with the RN Medical Screening Exam: Yes Case reviewed; plan agreed upon as documented in EMR&OBIX.: Yes Comments: Patient was neither seen nor examined by me Diagnosis: FALSE LABOR AT OR AFTER 37 COMPLETED WEEKS OF GESTATION
== END 2020-06-03 00:48 | disposition home or self-care (01) ==
LOC: FBPOP 23:00
PROVIDERS: ATTEND Obstetrics & Gynecology
DX: O47.1 False labor at or after 37 completed weeks of gestation (principal); Z3A.37 37 weeks gestation of pregnancy
CPT/HCPCS: 59025; 99213

== ENCOUNTER 2020-06-04 14:27 | Outpatient (CLI) | payer BC ==
[2020-06-04 18:05] VITALS: BP 117/62; PULSE 78; RESP 16; TEMP 98.2
--- NOTE | 2020-06-12 07:53 | P.MSEPDOC ---
Presenting Problems - Arrival Data Date of Arrival on Unit: 06/04/20 Time of Arrival on Unit: 14:27 Mode of Transport: Ambulatory - Complaint OB-Reason for Admission/Chief Complaint: Possible Onset of Labor Comment: IRREG CONTX ONSET 3 DAYS AGO. SLIGHT CERVICAL CHANGE FROM EXAM 3 DAYS AGO. Medical History - Information : 4 Para: 1 Term: 0 : 1 Abortions: Spontaneous or Elective: 2 Number of Living Children: 1 - Gestational Age Gestational Age by HALI (wks/days): 37 Weeks and 6 Days - History Complications: Smoker Comment: CEZAR Review of Systems - Review of Systems Constitutional: No problems Breast: No problems ENT: No problems Cardiovascular: No problems Respiratory: No problems Gastrointestinal: No problems Genitourinary: No problems Musculoskeletal: No problems Neurological: No problems Skin: No problems Vital Signs - Temperature Temperature: 98.2 F Temperature Source: Oral - Pulse Right Brachial Pulse Rate: 78 Pulse Assessment Method: Automatic Cuff - Respirations Respiratory Rate: 16 Oxygen Delivery Method: Room Air - Blood Pressure Right Arm Blood Pressure: 117/62 Blood Pressure Mean: 80 Blood Pressure Source: Automatic Cuff Medical Screen Scoring (Pre) - Cervical Exam Dilation: 4-7 cm = 2 Effacement: More than 50% = 2 Membranes: Intact - Uterine Contractions Frequency: > or = 36 weeks =2 Duration: > 40 seconds = 2 Intensity: N/A - Maternal Vital Signs Maternal Temperature: N/A Maternal Blood Pressure: N/A Signs of Preeclampsia: N/A Maternal Respirations: N/A - Maternal Trauma Maternal Trauma: N/A - Assessment - Baby A Baseline FHR: 140 Heart Rate - NICHD Category: Category I (Normal) = 0 NST: Reactive Position: N/A Station: N/A - Total Score - Baby A Total Score - Baby A: 8 - Total Score - Baby B Total Score - Baby B: 8 - Total Score - Baby C Total Score - Baby C: 8 - Level of Risk - Baby A Level of Risk - Baby A: Medium (6-9) - Level of Risk - Baby B Level of Risk - Baby B: Medium (6-9) - Level of Risk - Baby C Level of Risk - Baby C: Medium (6-9) Physician Notification (Pre) - Physician Notified Spoke With: kevin New Order Received: Yes - Notification Comment Comment: discharge order received. cervical dilation unchanged from prev exam by luis a banks rn. cervix essentially unchanged since 06-02-20 as well. reactive nst. irreg contractions 2-4 min apart of mild intensity x 3 days. 37 6/7 weeks [facility] t[facility] Medical Screen Scoring (Post) - Cervical Exam Dilation: 4-7 cm = 2 Effacement: More than 50% = 2 Membranes: Intact - Uterine Contractions Frequency: > or = 36 weeks =2 Duration: > 40 seconds = 2 Intensity: N/A - Maternal Vital Signs Maternal Temperature: N/A Signs of Preeclampsia: N/A Maternal Respirations: N/A - Pain Assessment Pain Scale Used: Numeric (1 - 10) Pain Intensity: 8 Pain Description: *Chronic, Cramping Pain Frequency: Intermittent Pain Duration: 3 Pain Duration Units: Days Pain Behavior: None Exhibited, Facial Grimacing Pain Aggravating Factors: Contractions Non-Pharmacological Interventions: Darkened Room - Maternal Trauma Maternal Trauma: N/A - Assessment - Baby A Heart Rate: 140 Heart Rate - NICHD Category: Category I (Normal) = 0 NST: Reactive Position: N/A Station: N/A - Total Score Total Score - Baby A: 8 Total Score - Baby B: 8 Total Score - Baby C: 8 - Post Treatment Level of Risk Post Treatment Level of Risk - Baby A: Medium (6-9) Post Treatment Level of Risk - Baby B: Medium (6-9) Post Treatment Level of Risk - Baby C: Medium (6-9) Physician Notification (Post) - Physician Notified Physician Notified Date: 06/04/20 Physician Notified Time: 16:11 Spoke With: KEVIN New Order Received: Yes - Notification Comment Comment: DISCHARGE HOME. TO KEEP SCHED APPT ON 06/06/20. PELVIC REST. INCREASE FLUIDS. Disposition - Disposition OB Disposition: Discharge to home Discharge Date: 06/04/20 Discharge Time: 16:40 I agree with the RN Medical Screening Exam: Yes Case reviewed; plan agreed upon as documented in EMR&OBIX.: Yes Comments: Patient was neither seen nor examined by me. Diagnosis: FALSE LABOR AT OR AFTER 37 COMPLETED WEEKS OF GESTATION
--- NOTE | 2020-06-12 07:55 | P.MSEPDOC ---
Presenting Problems - Arrival Data Date of Arrival on Unit: 06/04/20 Time of Arrival on Unit: 14:27 Mode of Transport: Ambulatory - Complaint OB-Reason for Admission/Chief Complaint: Possible Onset of Labor Comment: IRREG CONTX ONSET 3 DAYS AGO. SLIGHT CERVICAL CHANGE FROM EXAM 3 DAYS AGO. Medical History - Information : 4 Para: 1 Term: 0 : 1 Abortions: Spontaneous or Elective: 2 Number of Living Children: 1 - Gestational Age Gestational Age by HALI (wks/days): 37 Weeks and 6 Days - History Complications: Smoker Comment: CEZAR Review of Systems - Review of Systems Constitutional: No problems Breast: No problems ENT: No problems Cardiovascular: No problems Respiratory: No problems Gastrointestinal: No problems Genitourinary: No problems Musculoskeletal: No problems Neurological: No problems Skin: No problems Vital Signs - Temperature Temperature: 98.2 F Temperature Source: Oral - Pulse Right Brachial Pulse Rate: 78 Pulse Assessment Method: Automatic Cuff - Respirations Respiratory Rate: 16 Oxygen Delivery Method: Room Air - Blood Pressure Right Arm Blood Pressure: 117/62 Blood Pressure Mean: 80 Blood Pressure Source: Automatic Cuff Medical Screen Scoring (Pre) - Cervical Exam Dilation: 4-7 cm = 2 Effacement: More than 50% = 2 Membranes: Intact - Uterine Contractions Frequency: > or = 36 weeks =2 Duration: > 40 seconds = 2 Intensity: N/A - Maternal Vital Signs Maternal Temperature: N/A Maternal Blood Pressure: N/A Signs of Preeclampsia: N/A Maternal Respirations: N/A - Maternal Trauma Maternal Trauma: N/A - Assessment - Baby A Baseline FHR: 140 Heart Rate - NICHD Category: Category I (Normal) = 0 NST: Reactive Position: N/A Station: N/A - Total Score - Baby A Total Score - Baby A: 8 - Total Score - Baby B Total Score - Baby B: 8 - Total Score - Baby C Total Score - Baby C: 8 - Level of Risk - Baby A Level of Risk - Baby A: Medium (6-9) - Level of Risk - Baby B Level of Risk - Baby B: Medium (6-9) - Level of Risk - Baby C Level of Risk - Baby C: Medium (6-9) Physician Notification (Pre) - Physician Notified Spoke With: kevin New Order Received: Yes - Notification Comment Comment: discharge order received. cervical dilation unchanged from prev exam by luis a banks rn. cervix essentially unchanged since 06-02-20 as well. reactive nst. irreg contractions 2-4 min apart of mild intensity x 3 days. 37 6/7 weeks [facility], [place] Medical Screen Scoring (Post) - Cervical Exam Dilation: 4-7 cm = 2 Effacement: More than 50% = 2 Membranes: Intact - Uterine Contractions Frequency: > or = 36 weeks =2 Duration: > 40 seconds = 2 Intensity: N/A - Maternal Vital Signs Maternal Temperature: N/A Signs of Preeclampsia: N/A Maternal Respirations: N/A - Pain Assessment Pain Scale Used: Numeric (1 - 10) Pain Intensity: 8 Pain Description: *Chronic, Cramping Pain Frequency: Intermittent Pain Duration: 3 Pain Duration Units: Days Pain Behavior: None Exhibited, Facial Grimacing Pain Aggravating Factors: Contractions Non-Pharmacological Interventions: Darkened Room - Maternal Trauma Maternal Trauma: N/A - Assessment - Baby A Heart Rate: 140 Heart Rate - NICHD Category: Category I (Normal) = 0 NST: Reactive Position: N/A Station: N/A - Total Score Total Score - Baby A: 8 Total Score - Baby B: 8 Total Score - Baby C: 8 - Post Treatment Level of Risk Post Treatment Level of Risk - Baby A: Medium (6-9) Post Treatment Level of Risk - Baby B: Medium (6-9) Post Treatment Level of Risk - Baby C: Medium (6-9) Physician Notification (Post) - Physician Notified Physician Notified Date: 06/04/20 Physician Notified Time: 16:11 Spoke With: KEVIN New Order Received: Yes - Notification Comment Comment: DISCHARGE HOME. TO KEEP SCHED APPT ON 06/06/20. PELVIC REST. INCREASE FLUIDS. Disposition - Disposition OB Disposition: Physician follow up in office, Discharge to home Discharge Date: 06/04/20 Discharge Time: 16:40 I agree with the RN Medical Screening Exam: Yes Case reviewed; plan agreed upon as documented in EMR&OBIX.: Yes Diagnosis: FALSE LABOR AT OR AFTER 37 COMPLETED WEEKS OF GESTATION Additional Diagnoses: Patient was neither seen nor examined by me.
== END 2020-06-04 16:40 | disposition home or self-care (01) ==
LOC: FBPOP 14:27
PROVIDERS: ATTEND Obstetrics & Gynecology
DX: O47.1 False labor at or after 37 completed weeks of gestation (principal); Z3A.37 37 weeks gestation of pregnancy
CPT/HCPCS: 59025; 99213

== ENCOUNTER 2020-06-11 02:32 | Inpatient (IN) | payer BC, OTHER ==
[2020-06-11] MEDS ORDERED: TERBUTALINE 1 MG/ML VIAL SQ PRN (02:52)
[2020-06-11] MEDS ORDERED: LIDOCAINE 0.5% (PF) 5 MG/ML (50 ML SDV) SQ PRN (02:52)
[2020-06-11] MEDS ORDERED: CARBOPROST TROMETHAMINE 250 MCG/ML 1 ML AMP IM PRN (02:52)
[2020-06-11] MEDS ORDERED: METHYLERGONOVINE 0.2 MG/ML 1 ML AMP IM PRN (02:52)
[2020-06-11] MEDS ORDERED: OXYTOCIN 10 UNIT/ML 1 ML VIAL IM PRN (02:52)
--- NOTE | 2020-06-11 03:36 | P.HPOB ---
History of Present Illness H&P Date: 06/11/20 Chief Complaint: Labor at 38-5/7 weeks This is a 24-year-old 4 para 0121 woman who presents at 38-5/7 weeks gestation in advanced active labor. She reports onset of painful contractions at approximately midnight. She presented approximately 2:30 AM and was found to be 9+ centimeters dilated and regularly ramo. She's had an uncomplicated . She is a history of a 36 week spontaneous vaginal delivery previously. She had no labor with this . Laboratory data: Blood type A positive, antibody screen negative, rubella immune, VDRL nonreactive, hep [place] surface antigen negative, HIV negative, gonorrhea and chlamydia cultures negative, glucose tolerance testing within normal limits, group B strep negative. Review of Systems All systems: negative Past Medical History Past Medical History: No Reported History Additional Past Medical History / Comment(s): SCOLIOSIS History of Any Multi-Drug Resistant Organisms: None Reported Past Surgical History: No Surgical Hx Reported Additional Past Surgical History / Comment(s): leep Past Anesthesia/Blood Transfusion Reactions: No Reported Reaction Additional Past Anesthesia/Blood Transfusion Reaction / Comment(s): NEVER HAD ANESTH. Smoking Status: Current every day smoker, Vaper - Past Family History Mother Additional Family Medical History / Comment(s): Multiple Sclerosis. Cervical cancer Medications and Allergies Home Medications Medication Instructions Recorded Confirmed Type DULoxetine HCL [Cymbalta] 60 mg PO HS 08/17/18 06/11/20 History Pediatric Multivitamin No.144 2 each PO DAILY 05/30/20 06/11/20 History [Children's Chewable Vitamin] Famotidine [Pepcid] 1 tab PO DAILY 06/11/20 06/11/20 History Ferrous Sulfate [Iron] 1 tab PO HS 06/11/20 06/11/20 History Allergies Allergy/AdvReac Type Severity Reaction Status Date / Time No Known Allergies Allergy Verified 06/04/20 16:25 Exam Intake and Output 06/10/20 06/10/20 06/11/20 14:59 22:59 06:59 Other: Weight 70.76 kg Upon my initial evaluation the patient is completely dilated, 100% effaced and vertex in the 0 station. Artificial rupture of membranes is undertaken and thin meconium-stained fluid is noted. She's category 2 heart tones with good variability but heart rate variable decelerations with contractions to the 80s to 90s. Assessment and Plan (1) Term Current Visit: Yes Status: Acute Code(s): Z34.90 - ENCNTR FOR SUPRVSN OF NORMAL , UNSP, UNSP TRIMESTER SNOMED Code(s): 23208471 (2) Spontaneous onset of labor Current Visit: Yes Status: Acute Code(s): FGC8013 - SNOMED Code(s): 91145910 Plan: 24-year-old 4 para 1 woman admitted at 38-5/7 weeks gestation in advanced active labor. heart tones category 2. Group B strep negative, Rh+. Anticipate normal spontaneous vaginal delivery.
[2020-06-11] MEDS ORDERED: diphenhydrAMINE 50 MG CAP PO PRN (03:39)
[2020-06-11] MEDS ORDERED: LANOLIN CREAM 5 GM TUBE TOPICAL PRN (03:39)
[2020-06-11] MEDS ORDERED: SIMETHICONE 80 MG CHEWABLE PO PRN (03:39)
[2020-06-11] MEDS ORDERED: BENZOCAINE/MENTHOL SPRAY 1 GM/SPRAY AEROSOL TOPICAL PRN (03:39)
[2020-06-11] MEDS ORDERED: diphenhydrAMINE 50 MG/ML 1 ML VIAL IVP PRN ×2 (03:39)
[2020-06-11] MEDS ORDERED: diphenhydrAMINE 25 MG CAP PO PRN (03:39)
[2020-06-11] MEDS ORDERED: ACETAMINOPHEN TAB 325 MG TAB PO PRN (03:39)
[2020-06-11] MEDS ORDERED: HYDROCORTISONE 2.5% RECTAL CREAM 30 GM TUBE RECTAL PRN (03:39)
[2020-06-11] MEDS ORDERED: ZOLPIDEM 5 MG TAB PO PRN (03:39)
--- NOTE | 2020-06-11 03:39 | P.PROBDLV ---
Vaginal Delivery Note - . Vaginal Delivery Note: Findings: Male infant in the left occiput anterior position with Apgars of 9 at 1 minute and 9 at 5 minutes weighing 7 lbs. 8 oz., 3400 g. Light meconium- stained fluid. Body cord 1. Second-degree perineal laceration. EBL 150 mL's. Delivery summary: This is a 24-year-old 4 para 0121 woman who was admitted in spontaneous active labor at 38-5/7 weeks gestation. She presented at 9+ centimeters dilated and was admitted. She rapidly progressed to complete cervical dilation. Artificial rupture of membranes is undertaken and light meconium-stained fluid was noted. She had spontaneous urge to push. With contraction she did have mild variable heart rate decelerations. After artificial rupture of membranes approximately one contraction later she had strong urge to push. She was repositioned, prepped and draped in the modified Maciel position. With additional maternal effort 3 the head delivered from the left occiput anterior position followed rapidly by the anterior and posterior shoulders. The rest the infant was delivered onto the field and a tight body cord was reduced. There is also loop of cord around the ankle which was reduced. The 's nose and mouth were then bulb suctioned. The was placed on the maternal abdomen. Apgars were 9 at 1 minute and 9 at 5 minutes. The umbilical cord was eventually clamped and cut. The perineum was inspected and a second-degree laceration was noted. This was infused with lidocaine and repaired in the usual fashion with 3-0 Vicryl suture. An intact, three-vessel cord placenta was expressed after an approximately 6 minute third stage of labor. The uterus was massaged and was noted to be firm below the level of the umbilicus. Patient received Pitocin following delivery of the placenta. The rest of the vagina, cervix and perineum were inspected no further lacerations were noted. EBL was approximately 150 mL's. Both mother and were doing well post delivery in the room.
[2020-06-11] MEDS ORDERED: OXYTOCIN 30 UNITS/500 ML NS 30 UNIT in SALINE 1 500ML.BAG IV SCH (03:45)
[2020-06-11 03:55] LABS: Basophils % (A) 0 %; Eosinophils % (A) 0 %; HCT 37.4 % (34.0-46.0); HGB 12.8 gm/dL (11.4-16.0); Lymphocytes # (A) 3.2 k/uL (1.0-4.8); Lymphocytes % (A) 22 %; MCH 31.1 pg (25.0-35.0); MCHC 34.3 g/dL (31.0-37.0); MCV 90.6 fL (80.0-100.0); Mean Platelet Volume 11.9; Monocytes # (A) 0.7 k/uL (0-1.0); Monocytes % (A) 5 %; Neutrophils # (A) 10.7 k/uL (1.3-7.7); Neutrophils % (A) 71 %; Platelet Count 152 k/uL (150-450); RBC 4.13 m/uL (3.80-5.40); RDW 14.7 % (11.5-15.5); WBC 14.9 k/uL (3.8-10.6)
[2020-06-11] MEDS: LACTATED RINGERS 1,000 ML IV SCH ×2 (04:13→12:39)
[2020-06-11 04:40] LABS: Large Platelets Present
[2020-06-11] MEDS: IBUPROFEN 600 MG TAB PO PRN ×4 (05:05→23:23)
[2020-06-11] MEDS: SENNOSIDES-DOCUSATE SODIUM 1 EACH TAB PO SCH ×2 (07:44→20:59)
[2020-06-11] MEDS: ACETAMINOPHEN TAB 325 MG TAB PO PRN ×3 (07:58→21:00)
[2020-06-12] MEDS: ACETAMINOPHEN TAB 325 MG TAB PO PRN ×2 (03:10→11:12)
[2020-06-12] MEDS: IBUPROFEN 600 MG TAB PO PRN ×2 (06:17→12:29)
[2020-06-12 07:27] VITALS: RESP 17
--- NOTE | 2020-06-12 07:46 | P.DS ---
Providers Date of admission: 06/11/20 02:49 Expected date of discharge: 06/12/20 Attending physician: Arti Velázquez Primary care physician: Stated None Hospital Course: This is a 24-year-old white female 4 para 10-1 EDC 06/19/2020 at 38-5/7 weeks' gestation. Patient presented from home in active spontaneous labor. is remarkable for blood type A positive, rubella status immune, group B strep cultures negative. Please see dictated history and physical for details. Patient rapidly delivered a liveborn male infant vaginally, scores 9 and 9 at one and 5 minutes respectively. weighed 7 lbs. 8 oz. or 3400 g. There was a small second-degree laceration easily repaired. Estimated blood loss of 150 mL's. Please see dictated delivery note for details. This morning the patient is doing well. She is voiding, ambulating, passing flatus without difficulty. Vital signs are stable and she is afebrile. Fundus is firm and in the midline, symmetric and 18 week size. Extremities are negative for edema. Chest is clear in all parra. infant is in the nursery receiving antibiotics and will not be discharged home today. The patient however is judged to be in very good condition for discharge home and is choosing to go home and sleep in her own bed. She will follow-up with me in the office in 6 weeks. I have reminded her no intercourse, tampons or douching. She will use [id number]-vvanfec Motrin, Advil or Aleve as needed for pain. She will call with any fevers shakes or chills, foul smelling or copious lochia, with the passage of large blood clots, with any pain not alleviated by [id number] products, or indeed with any concerns. Assessment: Well day #1 Patient Condition at Discharge: Good Plan - Discharge Summary Discharge Rx Participant: No New Discharge Prescriptions: No Action DULoxetine HCL [Cymbalta] 60 mg PO HS Pediatric Multivitamin No.144 [Children's Chewable Vitamin] 2 each PO DAILY Famotidine [Pepcid] 1 tab PO DAILY Ferrous Sulfate [Iron] 1 tab PO HS Discharge Medication List DULoxetine HCL [Cymbalta] 60 mg PO HS 08/17/18 [History] Pediatric Multivitamin No.144 [Children's Chewable Vitamin] 2 each PO DAILY 05/30/20 [History] Famotidine [Pepcid] 1 tab PO DAILY 06/11/20 [History] Ferrous Sulfate [Iron] 1 tab PO HS 06/11/20 [History] Follow up Appointment(s)/Referral(s): Arti Velázquez MD [STAFF PHYSICIAN] - 6 Weeks Discharge Disposition: HOME SELF-CARE
--- NOTE | 2020-06-12 08:00 | P.MSEPDOC ---
Presenting Problems - Arrival Data Date of Arrival on Unit: 06/10/20 Time of Arrival on Unit: 02:50 Mode of Transport: Wheelchair - Complaint OB-Reason for Admission/Chief Complaint: Possible Onset of Labor Comment: patient arrives to triage stating tht she has been ramo every 2 minutes since 0000 and is leaking fluid. Medical History - Information : 4 Para: 1 Term: 0 : 1 Abortions: Spontaneous or Elective: 2 Number of Living Children: 1 - Gestational Age Gestational Age by HALI (wks/days): 38 Weeks and 6 Days - History Complications: Smoker Review of Systems - Review of Systems Constitutional: No problems Breast: No problems ENT: No problems Cardiovascular: No problems Respiratory: No problems Gastrointestinal: No problems Genitourinary: No problems Musculoskeletal: No problems Neurological: No problems Skin: No problems Vital Signs - Temperature Temperature: 97.8 F Temperature Source: Oral - Pulse Pulse Oximetery Pulse Rate: 63 Pulse Assessment Method: Pulse Oximetry - Respirations Respiratory Rate: 17 Oxygen Delivery Method: Room Air O2 Sat by Pulse Oximetry: 99 - Blood Pressure Right Arm Blood Pressure: 119/75 Blood Pressure Mean: 89 Blood Pressure Source: Automatic Cuff Medical Screen Scoring (Pre) - Cervical Exam Dilation: 8-10 cm = 3 Effacement: More than 50% = 2 Membranes: Ruptured = 3 - Uterine Contractions Frequency: > 5 minutes apart = 1 Duration: > 40 seconds = 2 Intensity: Contraction palpated strong = 1 - Maternal Vital Signs Maternal Temperature: N/A Maternal Blood Pressure: N/A Signs of Preeclampsia: N/A Maternal Respirations: N/A - Maternal Trauma Maternal Trauma: N/A - Assessment - Baby A Baseline FHR: 140 Heart Rate - NICHD Category: Category II (Indeterminate) = 3 NST: Reactive Position: N/A Station: N/A - Total Score - Baby A Total Score - Baby A: 15 - Total Score - Baby B Total Score - Baby B: 12 - Total Score - Baby C Total Score - Baby C: 12 - Level of Risk - Baby A Level of Risk - Baby A: High (10+) - Level of Risk - Baby B Level of Risk - Baby B: High (10+) - Level of Risk - Baby C Level of Risk - Baby C: High (10+) Physician Notification (Pre) - Physician Notified Physician Notified Date: 06/11/20 Physician Notified Time: 02:48 New Order Received: Yes - Notification Comment Comment: report given on and maternal status. Dr. Pitt is on her way in and to admit patient. Disposition - Disposition OB Disposition: Admit Transferred to:: [address] Discharge Date: 06/11/20 Discharge Time: 02:48 I agree with the RN Medical Screening Exam: Yes Case reviewed; plan agreed upon as documented in EMR&OBIX.: Yes Diagnosis: LOUSE-BORNE TYPHUS Additional Diagnoses: Patient was neither seen nor examined by me
[2020-06-12 11:10] VITALS: BP 118/68; PULSE 81; TEMP 98.1
[2020-06-12] MEDS: SENNOSIDES-DOCUSATE SODIUM 1 EACH TAB PO SCH (11:13)
== END 2020-06-12 12:40 | disposition home or self-care (01) | DRG 807 ==
LOC: FBPOP 02:32 → 4FBP 02:49
PROVIDERS: ADMIT Obstetrics & Gynecology; ATTEND Obstetrics & Gynecology
PROC: 10E0XZZ Delivery of Products of Conception, External Approach (ICD-10-PCS; principal; 2020-06-11)
PROC: 0KQM0ZZ Repair Perineum Muscle, Open Approach (ICD-10-PCS; principal; 2020-06-11)
DX: O70.1 Second degree perineal laceration during delivery (principal); Z37.0 Single live birth; Z3A.38 38 weeks gestation of pregnancy; M41.9 Scoliosis, unspecified; F17.200 Nicotine dependence, unspecified, uncomplicated; O99.334 Smoking (tobacco) complicating childbirth; O76 Abnormality in fetal heart rate and rhythm complicating labor and delivery; O77.0 Labor and delivery complicated by meconium in amniotic fluid; Z80.49 Family history of malignant neoplasm of other genital organs; Z82.0 Family history of epilepsy and other diseases of the nervous system
CPT/HCPCS: 59025; 84112; 85025; 86850; 86900; 86901; 99213

== ENCOUNTER 2020-12-17 07:19 | Emergency (ER) | payer BC, OTHER ==
[2020-12-17 07:24] VITALS: BP 106/73; PULSE 90; RESP 18; TEMP 98
--- NOTE | 2020-12-17 07:44 | ED ---
Extremity Problem HPI - General Chief complaint: Extremity Problem,Nontraumatic Stated complaint: Lt Ankle Pain Time Seen by Provider: 12/17/20 07:27 Source: patient, RN notes reviewed Mode of arrival: ambulatory Limitations: no limitations - History of Present Illness Initial comments: 25-year-old female presents emergency Department with chief left foot pain. Patient states been increased over the last 1 week. She states since she steps down on the ground for mechanical she has some pain in her foot, heel and arch of her foot. Patient states and especially when she works. 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 No trauma no other complaints. - Related Data Home Medications Medication Instructions Recorded Confirmed DULoxetine HCL [Cymbalta] 60 mg PO HS 08/17/18 06/11/20 Pediatric Multivitamin No.144 2 each PO DAILY 05/30/20 06/11/20 [Children's Chewable Vitamin] Famotidine [Pepcid] 1 tab PO DAILY 06/11/20 06/11/20 Ferrous Sulfate [Iron] 1 tab PO HS 06/11/20 06/11/20 Previous Rx's Medication Instructions Recorded Ibuprofen [Motrin] 600 mg PO Q8HR PRN #20 tab 12/17/20 predniSONE 50 mg PO DAILY #5 tab 12/17/20 Allergies Allergy/AdvReac Type Severity Reaction Status Date / Time No Known Allergies Allergy Verified 12/17/20 07:24 Review of Systems ROS Statement: Those systems with pertinent positive or pertinent negative responses have been documented in the HPI. ROS Other: All systems not noted in ROS Statement are negative. Past Medical History Past Medical History: No Reported History Additional Past Medical History / Comment(s): SCOLIOSIS History of Any Multi-Drug Resistant Organisms: None Reported Past Surgical History: No Surgical Hx Reported Additional Past Surgical History / Comment(s): leep Past Anesthesia/Blood Transfusion Reactions: No Reported Reaction Additional Past Anesthesia/Blood Transfusion Reaction / Comment(s): NEVER HAD ANESTH. Past Psychological History: Anxiety, Depression Smoking Status: Vaper Past Alcohol Use History: None Reported Past Drug Use History: Marijuana - Past Family History Mother Additional Family Medical History / Comment(s): Multiple Sclerosis. Cervical cancer General Exam Limitations: no limitations General appearance: alert, in no apparent distress Head exam: Present: atraumatic, normocephalic, normal inspection Respiratory exam: Present: normal lung sounds bilaterally. Absent: respiratory distress, wheezes, rales, rhonchi, stridor Cardiovascular Exam: Present: regular rate, normal rhythm, normal heart sounds. Absent: systolic murmur, diastolic murmur, rubs, gallop, clicks Extremities exam: Present: other (Left foot there is tenderness over the base of the heel, arch. No swelling neurovascular intact no malleolar tenderness full range of motion) Course Vital Signs 12/17/20 07:22 Temperature 98.0 F Pulse Rate 90 Respiratory 18 Rate Blood Pressure 106/73 O2 Sat by Pulse 99 Oximetry Medical Decision Making - Medical Decision Making X-rays unremarkable. Patient's symptoms are consistent with plantar fasciitis. We discussed treatment and will follow-up with orthopedics if no improvement. Disposition Clinical Impression: Plantar fasciitis, left Disposition: HOME SELF-CARE Condition: Stable Instructions (If sedation given, give patient instructions): Plantar Fasciitis Exercises (ED), Plantar Fasciitis (ED) Additional Instructions: Please return to the Emergency Department if symptoms worsen or any other concerns. Prescriptions: Ibuprofen [Motrin] 600 mg PO Q8HR PRN #20 tab PRN Reason: Pain predniSONE 50 mg PO DAILY #5 tab Is patient prescribed a controlled substance at d/c from ED?: No Referrals: Nidia Atkins DO [Primary Care Provider] - 1-2 days Max Michelle DPM [Doctor of Osteopathic Medicine] - 1-2 days Time of Disposition:
[2020-12-17] MEDS ORDERED: ACET/COD 300 MG/30 MG STARTER PACK 6 TAB BTL PO STA (08:17)
--- NOTE | 2020-12-17 08:20 | XR ---
EXAMINATION TYPE: XR foot complete LT DATE OF EXAM: 12/17/2020 CLINICAL HISTORY: Lateral pain for one week. TECHNIQUE: Frontal, lateral, and oblique images of the left foot are obtained. COMPARISON: None FINDINGS: There is no acute fracture/dislocation evident in the left foot. The joint spaces in the left foot appear within normal limits. Focal mild/moderate soft tissue swelling lateral aspect at lev el of the fifth metatarsophalangeal joint without bony destruction or erosive change. Consider focal bursitis. IMPRESSION: As above.
== END 2020-12-17 08:29 | disposition home or self-care (01) ==
LOC: EC 07:19
DX: M72.2 Plantar fascial fibromatosis (principal); F32.9 Major depressive disorder, single episode, unspecified; F41.9 Anxiety disorder, unspecified; F17.290 Nicotine dependence, other tobacco product, uncomplicated; F12.90 Cannabis use, unspecified, uncomplicated
CPT/HCPCS: 99283

== ENCOUNTER 2021-02-05 13:05 | Emergency (ER) | payer BC ==
--- NOTE | 2021-02-05 15:32 | ED ---
ENT HPI - General Chief complaint: ENT Stated complaint: R Earache,Nausea Time Seen by Provider: 02/05/21 14:56 Source: patient, RN notes reviewed Mode of arrival: ambulatory Limitations: no limitations - History of Present Illness Initial comments: Patient is a 25-year-old female presented to the ER for 3 day ear pain and nausea. Patient states krunal has right-sided jaw pain. Patient states it's causing her to have a headache.. . Patient reports having known cavities, with last dental appointment 9 months prior. Patient reports pain with full jaw extension, with no voiced pain with mastication. Patient reports getting over RSV related illness from children. - Related Data Home Medications Medication Instructions Recorded Confirmed DULoxetine HCL [Cymbalta] 60 mg PO HS 08/17/18 06/11/20 Pediatric Multivitamin No.144 2 each PO DAILY 05/30/20 06/11/20 [Children's Chewable Vitamin] Famotidine [Pepcid] 1 tab PO DAILY 06/11/20 06/11/20 Ferrous Sulfate [Iron] 1 tab PO HS 06/11/20 06/11/20 Previous Rx's Medication Instructions Recorded Ibuprofen [Motrin] 600 mg PO Q8HR PRN #20 tab 12/17/20 predniSONE 50 mg PO DAILY #5 tab 12/17/20 Ibuprofen [Motrin] 600 mg PO Q8HR PRN #20 tab 02/05/21 Penicillin V Potassium [Pen Vee K] 500 mg PO QID #40 tablet 02/05/21 Allergies Allergy/AdvReac Type Severity Reaction Status Date / Time No Known Allergies Allergy Verified 02/05/21 14:59 Review of Systems ROS Statement: Those systems with pertinent positive or pertinent negative responses have been documented in the HPI. ROS Other: All systems not noted in ROS Statement are negative. Past Medical History Past Medical History: No Reported History Additional Past Medical History / Comment(s): SCOLIOSIS History of Any Multi-Drug Resistant Organisms: None Reported Past Surgical History: No Surgical Hx Reported Additional Past Surgical History / Comment(s): leep Past Anesthesia/Blood Transfusion Reactions: No Reported Reaction Additional Past Anesthesia/Blood Transfusion Reaction / Comment(s): NEVER HAD ANESTH. Past Psychological History: Anxiety, Depression Smoking Status: Vaper Past Alcohol Use History: None Reported Past Drug Use History: Marijuana - Past Family History Mother Additional Family Medical History / Comment(s): Multiple Sclerosis. Cervical cancer General Exam Limitations: no limitations General appearance: alert, in distress (Pain) Head exam: Present: atraumatic, normocephalic, normal inspection Eye exam: Present: normal appearance, PERRL, EOMI. Absent: scleral icterus, conjunctival injection, periorbital swelling ENT exam: Present: normal exam, mucous membranes moist. Absent: normal oropharynx (poor dentition, tenderness over the right mandibular region) Expanded Ear exam: Present: normal external inspection Mouth exam: Present: normal external inspection Teeth exam: Present: dental caries Throat exam: normal inspection Neck exam: Present: normal inspection. Absent: tenderness, meningismus, lymph adenopathy Respiratory exam: Present: normal lung sounds bilaterally. Absent: respiratory distress, wheezes, rales, rhonchi, stridor Cardiovascular Exam: Present: regular rate, normal rhythm, normal heart sounds. Absent: systolic murmur, diastolic murmur, rubs, gallop, clicks Neurological exam: Present: alert, oriented X3, CN II-XII intact Psychiatric exam: Present: normal affect, normal mood Skin exam: Present: warm, dry, intact, normal color. Absent: rash Course Vital Signs 02/05/21 13:31 Temperature 98.6 F Pulse Rate 81 Respiratory 16 Rate Blood Pressure 126/82 O2 Sat by Pulse 99 Oximetry Medical Decision Making - Medical Decision Making For patients known dental caries, otalgia sending home on Tylenol starter pack for management of pain.patient was placed I am by for possible dental infection. - Differential Diagnosis TMJ pain, otalgia, dental infection Disposition Clinical Impression: Otalgia, Dental infection, TMJ (temporomandibular joint disorder) Disposition: HOME SELF-CARE Condition: Stable Instructions (If sedation given, give patient instructions): Temporomandibular Disorder (ED) Additional Instructions: Please return to the Emergency Department if symptoms worsen or any other concerns. Prescriptions: Ibuprofen [Motrin] 600 mg PO Q8HR PRN #20 tab PRN Reason: Pain Penicillin V Potassium [Pen Vee K] 500 mg PO QID #40 tablet Is patient prescribed a controlled substance at d/c from ED?: No Referrals: Nidia Atkins DO [Primary Care Provider] - 1-2 days Time of Disposition: 15:46
[2021-02-05] MEDS ORDERED: ACET/COD 300 MG/30 MG STARTER PACK 6 TAB BTL PO STA (15:38)
[2021-02-05 16:06] VITALS: BP 118/80; PULSE 80; RESP 20; TEMP 98.2
== END 2021-02-05 16:06 | disposition home or self-care (01) ==
LOC: EC 13:05
DX: K04.7 Periapical abscess without sinus (principal); M26.601 Right temporomandibular joint disorder, unspecified; H92.01 Otalgia, right ear; F32.9 Major depressive disorder, single episode, unspecified; F41.9 Anxiety disorder, unspecified; F17.290 Nicotine dependence, other tobacco product, uncomplicated; F12.90 Cannabis use, unspecified, uncomplicated; Z79.1 Long term (current) use of non-steroidal anti-inflammatories (NSAID); Z79.899 Other long term (current) drug therapy
CPT/HCPCS: 99283

== ENCOUNTER → 2021-04-02 | Outpatient (CLI) | payer BC ==
--- NOTE | 2021-04-02 16:00 | XR ---
EXAMINATION TYPE: XR lumbar spine 2 or 3V DATE OF EXAM: 04/02/2021 COMPARISON: None HISTORY: Right hip pain TECHNIQUE: 3 view lumbar spine FINDINGS: There 5 lumbar-type vertebral bodies. Pedicles are intact. Disc heights are preserved. Vert ebral body heights are preserved. IMPRESSION: 1. Normal three-view lumbar spine
--- NOTE | 2021-04-02 16:02 | XR ---
EXAMINATION TYPE: XR Hip Complete RT DATE OF EXAM: 04/02/2021 COMPARISON: None HISTORY: Right hip pain TECHNIQUE: Right hip is examined in 2 views FINDINGS: Femoral head articulates with the acetabulum. Joint space is preserved. No acute fracture o r dislocation is evident. Follow up exams can be performed 7-10 days from acute trauma for continued pain. IMPRESSION: 1. Normal 2 view right hip
--- NOTE | 2021-04-02 16:03 | XR ---
EXAMINATION TYPE: XR knee limited bilateral DATE OF EXAM: 04/02/2021 COMPARISON: None HISTORY: Pain TECHNIQUE: Bilateral knees are examined in 2 views each. FINDINGS: Joint spaces are preserved. No joint effusions are evident. No acute fracture or dislocation is evide nt. Soft tissues are unremarkable. Follow up exams can be performed 7-10 days from acute trauma for continued pain. IMPRESSION: 1. Normal bilateral knees.
== END | disposition home or self-care (01) ==
LOC: RADXRMAIN 12:35
PROVIDERS: ATTEND Internal Medicine
DX: M25.551 Pain in right hip (principal)
CPT/HCPCS: 72100; 73502

== ENCOUNTER 2021-05-10 21:59 | Emergency (ER) | payer BC ==
[2021-05-10 22:34] VITALS: RESP 18; TEMP 98.7
[2021-05-11] MEDS ORDERED: SODIUM CHLORIDE 0.9% 1,000 ML IV STA ×2 (00:07)
[2021-05-11] MEDS ORDERED: SODIUM CHLORIDE 0.9% 500 ML 500 ML IV STA (00:07)
[2021-05-11] MEDS ORDERED: KETOROLAC 15 MG/ML 1 ML VIAL IVP STA (00:07)
[2021-05-11] MEDS ORDERED: PANTOPRAZOLE 40 MG/10 ML VIAL IVP STA (00:07)
[2021-05-11] MEDS ORDERED: DIAZEPAM 5 MG/ML 2 ML INJ IVP STA (00:07)
[2021-05-11] MEDS ORDERED: ONDANSETRON 4 MG/2 ML VIAL IVP STA ×2 (00:07)
--- NOTE | 2021-05-11 00:28 | XR ---
EXAMINATION TYPE: XR chest 2V DATE OF EXAM: 05/11/2021 COMPARISON: 05/12/2018 HISTORY: Weakness TECHNIQUE: 2 views FINDINGS: Heart and mediastinum are normal. Lungs are clear. Diaphragm is normal. Bony thorax is inta ct. IMPRESSION: Normal chest. No change.
--- NOTE | 2021-05-11 00:36 | ED ---
Nausea/Vomiting/Diarrhea HPI - General Chief complaint: Nausea/Vomiting/Diarrhea Stated complaint: migraine, n/v Time Seen by Provider: 05/10/21 23:59 Source: patient, RN notes reviewed, old records reviewed Mode of arrival: ambulatory Limitations: no limitations - History of Present Illness Initial comments: This is a 25-year-old female to the emergency department today for evaluation today. She coming in with shaking sweating not feeling well. Patient recently with stop taking Xanax. She is taking Xanax not prescribe for significant anxiety and depression. Patient is not homicidal or suicidal no other drug or alcohol abuse. MD complaint: nausea, vomiting -: days(s) Description of Vomiting: watery Associated Abdominal Pain: Yes Location: diffuse Radiation: none Severity: moderate Severity scale (1-10): 4 Quality: cramping, stabbing, aching Consistency: intermittent Improves with: none Worsens with: none Associated Symptoms: denies other symptoms - Related Data Home Medications Medication Instructions Recorded Confirmed DULoxetine HCL [Cymbalta] 60 mg PO HS 08/17/18 06/11/20 Pediatric Multivitamin No.144 2 each PO DAILY 05/30/20 06/11/20 [Children's Chewable Vitamin] Famotidine [Pepcid] 1 tab PO DAILY 06/11/20 06/11/20 Ferrous Sulfate [Iron] 1 tab PO HS 06/11/20 06/11/20 Previous Rx's Medication Instructions Recorded Ibuprofen [Motrin] 600 mg PO Q8HR PRN #20 tab 12/17/20 predniSONE 50 mg PO DAILY #5 tab 12/17/20 Ibuprofen [Motrin] 600 mg PO Q8HR PRN #20 tab 02/05/21 Penicillin V Potassium [Pen Vee K] 500 mg PO QID #40 tablet 02/05/21 Allergies Allergy/AdvReac Type Severity Reaction Status Date / Time No Known Allergies Allergy Verified 05/10/21 22:33 Review of Systems ROS Statement: Those systems with pertinent positive or pertinent negative responses have been documented in the HPI. ROS Other: All systems not noted in ROS Statement are negative. Past Medical History Past Medical History: No Reported History Additional Past Medical History / Comment(s): SCOLIOSIS History of Any Multi-Drug Resistant Organisms: None Reported Past Surgical History: No Surgical Hx Reported Additional Past Surgical History / Comment(s): leep Past Anesthesia/Blood Transfusion Reactions: No Reported Reaction Additional Past Anesthesia/Blood Transfusion Reaction / Comment(s): NEVER HAD ANESTH. Past Psychological History: Anxiety, Depression Smoking Status: Vaper Past Alcohol Use History: None Reported Past Drug Use History: Marijuana - Past Family History Mother Additional Family Medical History / Comment(s): Multiple Sclerosis. Cervical cancer General Exam General appearance: alert, in no apparent distress Head exam: Present: atraumatic, normocephalic, normal inspection Eye exam: Present: normal appearance, PERRL, EOMI. Absent: scleral icterus, conjunctival injection, periorbital swelling ENT exam: Present: normal exam, mucous membranes moist Neck exam: Present: normal inspection. Absent: tenderness, meningismus, lymphadenopathy Respiratory exam: Present: normal lung sounds bilaterally. Absent: respiratory distress, wheezes, rales, rhonchi, stridor Cardiovascular Exam: Present: regular rate, normal rhythm, normal heart sounds. Absent: systolic murmur, diastolic murmur, rubs, gallop, clicks GI/Abdominal exam: Present: soft, normal bowel sounds. Absent: distended, tenderness, guarding, rebound, rigid Extremities exam: Present: normal inspection, full ROM, normal capillary refill. Absent: tenderness, pedal edema, joint swelling, calf tenderness Back exam: Present: normal inspection Neurological exam: Present: alert, oriented X3, CN II-XII intact Psychiatric exam: Present: normal affect, normal mood Skin exam: Present: warm, dry, intact, normal color. Absent: rash Course Vital Signs 05/10/21 22:31 Temperature 98.7 F Pulse Rate 101 H Respiratory 18 Rate Blood Pressure 154/88 O2 Sat by Pulse 99 Oximetry - Reevaluation(s) Reevaluation #1: 05/11/21 01:54 Medical record is reviewed Reevaluation #2: 05/11/21 02:59 Patient symptoms are significantly improved Reevaluation #3: 05/11/21 02:59 Patient informed results and can be discharged Medical Decision Making - Medical Decision Making 25 Female not feeling well maybe for mild withdrawal from Xanax. Patient has some shaking and sweating. With nausea vomiting. Symptoms resolved and she can be discharged home - Lab Data Result diagrams: 05/11/21 00:58 05/11/21 00:58 Lab Results 05/11/21 05/11/21 05/11/21 Range/Units 00:58 00:58 00:59 WBC 13.2 H (3.8-10.6) k/uL RBC 4.86 (3.80-5.40) m/uL Hgb 14.7 (11.4-16.0) gm/dL Hct 44.5 (34.0-46.0) % MCV 91.7 (80.0-100.0) fL MCH 30.2 (25.0-35.0) pg MCHC 33.0 (31.0-37.0) g/dL RDW 12.8 (11.5-15.5) % Plt Count 387 (150-450) k/uL MPV 7.4 Neutrophils % 78 % Lymphocytes % 17 % Monocytes % 3 % Eosinophils % 0 % Basophils % 0 % Neutrophils # 10.3 H (1.3-7.7) k/uL Lymphocytes # 2.2 (1.0-4.8) k/uL Monocytes # 0.4 (0-1.0) k/uL Eosinophils # 0.0 (0-0.7) k/uL Basophils # 0.1 (0-0.2) k/uL Sodium 137 (137-145) mmol/L Potassium 3.6 (3.5-5.1) mmol/L Chloride 100 (98-107) mmol/L Carbon Dioxide 22 (22-30) mmol/L Anion Gap 15 mmol/L BUN 10 (7-17) mg/dL Creatinine 0.85 (0.52-1.04) mg/dL Est GFR (CKD-EPI)AfAm >90 (>60 ml/min/1.73 sqM) Est GFR (CKD-EPI)NonAf >90 (>60 ml/min/1.73 sqM) Glucose 99 (74-99) mg/dL Calcium 10.4 H (8.4-10.2) mg/dL Phosphorus 3.3 (2.5-4.5) mg/dL Magnesium 2.0 (1.6-2.3) mg/dL Total Bilirubin 0.7 (0.2-1.3) mg/dL AST 27 (14-36) U/L ALT 15 (4-34) U/L Alkaline Phosphatase 118 (38-126) U/L Lactate Dehydrogenase 525 (313-618) U/L C-Reactive Protein 1.4 H (<1.0) mg/dL Total Protein 9.1 H (6.3-8.2) g/dL Albumin 5.3 H (3.5-5.0) g/dL Urine Color Urine Appearance (Clear) Urine pH (5.0-8.0) Ur Specific [place] (1.001-1.035) Urine Protein (Negative) Urine Glucose (UA) (Negative) Urine Ketones (Negative) Urine Blood (Negative) Urine Nitrite (Negative) Urine Bilirubin (Negative) Urine Urobilinogen (<2.0) mg/dL Ur Leukocyte Esterase (Negative) Urine RBC (0-5) /hpf Urine WBC (0-5) /hpf Ur Squamous Epith Cells (0-4) /hpf Urine Bacteria (None) /hpf Urine Mucus (None) /hpf Coronavirus (PCR) Not Detected (Not Detectd) 05/11/21 Range/Units 01:58 WBC (3.8-10.6) k/uL RBC (3.80-5.40) m/uL Hgb (11.4-16.0) gm/dL Hct (34.0-46.0) % MCV (80.0-100.0) fL MCH (25.0-35.0) pg MCHC (31.0-37.0) g/dL RDW (11.5-15.5) % Plt Count (150-450) k/uL MPV Neutrophils % % Lymphocytes % % Monocytes % % Eosinophils % % Basophils % % Neutrophils # (1.3-7.7) k/uL Lymphocytes # (1.0-4.8) k/uL Monocytes # (0-1.0) k/uL Eosinophils # (0-0.7) k/uL Basophils # (0-0.2) k/uL Sodium (137-145) mmol/L Potassium (3.5-5.1) mmol/L Chloride (98-107) mmol/L Carbon Dioxide (22-30) mmol/L Anion Gap mmol/L BUN (7-17) mg/dL Creatinine (0.52-1.04) mg/dL Est GFR (CKD-EPI)AfAm (>60 ml/min/1.73 sqM) Est GFR (CKD-EPI)NonAf (>60 ml/min/1.73 sqM) Glucose (74-99) mg/dL Calcium (8.4-10.2) mg/dL Phosphorus (2.5-4.5) mg/dL Magnesium (1.6-2.3) mg/dL Total Bilirubin (0.2-1.3) mg/dL AST (14-36) U/L ALT (4-34) U/L Alkaline Phosphatase (38-126) U/L Lactate Dehydrogenase (313-618) U/L C-Reactive Protein (<1.0) mg/dL Total Protein (6.3-8.2) g/dL Albumin (3.5-5.0) g/dL Urine Color Yellow Urine Appearance Clear (Clear) Urine pH 7.0 (5.0-8.0) Ur Specific [place] 1.026 (1.001-1.035) Urine Protein 1+ H (Negative) Urine Glucose (UA) Negative (Negative) Urine Ketones 2+ H (Negative) Urine Blood Negative (Negative) Urine Nitrite Negative (Negative) Urine Bilirubin Negative (Negative) Urine Urobilinogen 2.0 (<2.0) mg/dL Ur Leukocyte Esterase Negative (Negative) Urine RBC 1 (0-5) /hpf Urine WBC 1 (0-5) /hpf Ur Squamous Epith Cells 7 H (0-4) /hpf Urine Bacteria Rare H (None) /hpf Urine Mucus Few H (None) /hpf Coronavirus (PCR) (Not Detectd) - Radiology Data Radiology results: report reviewed (Chest x-rays negative for acute disease), image reviewed Disposition Clinical Impression: Dehydration, Gastroenteritis Disposition: HOME SELF-CARE Instructions (If sedation given, give patient instructions): Acute Nausea and Vomiting (ED) Is patient prescribed a controlled substance at d/c from ED?: No Referrals: Marta Davies MD [Primary Care Provider] - 1-2 days
[2021-05-11] MEDS ORDERED: MAG HYDROX/AL HYDROX/SIMETH 30 ML, HYOSCYAMINE ELIXIR 10 ML, LIDOCAINE VISCOUS 2% 10 ML PO STA ×3 (01:23)
[2021-05-11] MEDS ORDERED: LORazepam 2 MG/ML INJ IV STA (01:23)
[2021-05-11 02:00] LABS: Basophils # (A) 0.1 k/uL (0-0.2); Basophils % (A) 0 %; Eosinophils % (A) 0 %; HCT 44.5 % (34.0-46.0); HGB 14.7 gm/dL (11.4-16.0); Lymphocytes # (A) 2.2 k/uL (1.0-4.8); Lymphocytes % (A) 17 %; MCH 30.2 pg (25.0-35.0); MCV 91.7 fL (80.0-100.0); Mean Platelet Volume 7.4; Monocytes # (A) 0.4 k/uL (0-1.0); Monocytes % (A) 3 %; Neutrophils # (A) 10.3 k/uL (1.3-7.7); Neutrophils % (A) 78 %; Platelet Count 387 k/uL (150-450); RBC 4.86 m/uL (3.80-5.40); RDW 12.8 % (11.5-15.5); WBC 13.2 k/uL (3.8-10.6)
[2021-05-11 02:21] LABS: ALT 15 U/L (4-34); AST 27 U/L (14-36); African American GFR (CKD) >90 (>60 ml/min/1.73 sqM); Albumin 5.3 g/dL (3.5-5.0); Alkaline Phosphatase 118 U/L (38-126); Anion Gap 15 mmol/L; Blood Urea Nitrogen 10 mg/dL (7-17); C Reactive Protein 1.4 mg/dL (<1.0); Calcium 10.4 mg/dL (8.4-10.2); Carbon Dioxide 22 mmol/L (22-30); Chloride 100 mmol/L (98-107); Glucose 99 mg/dL (74-99); LDH 525 U/L (313-618); Non-African American GFR(CKD) >90 (>60 ml/min/1.73 sqM); Phosphorus 3.3 mg/dL (2.5-4.5); Potassium 3.6 mmol/L (3.5-5.1); Sodium 137 mmol/L (137-145); Total Bilirubin 0.7 mg/dL (0.2-1.3); Total Protein 9.1 g/dL (6.3-8.2)
[2021-05-11 02:30] LABS: Appearance,Urine Clear (Clear); Bacteria,Urine Rare /hpf; Bilirubin,Urine Negative (Negative); Blood,Urine Negative (Negative); Color,Urine Yellow; Glucose,Urine (UA) Negative (Negative); Ketones,Urine 2+ (Negative); Leukocyte Esterase,Urine Negative (Negative); Mucus,Urine Few /hpf; Nitrite,Urine Negative (Negative); Protein,Urine 1+ (Negative); RBC,Urine 1 /hpf (0-5); Specific Gravity,Urine 1.026 (1.001-1.035); Squamous Epithelial Cell,Urine 7 /hpf (0-4); WBC,Urine 1 /hpf (0-5)
[2021-05-11] MEDS ORDERED: diazePAM 5 MG TAB PO STA (02:59)
[2021-05-11 03:33] VITALS: BP 118/78; PULSE 78
== END 2021-05-11 03:34 | disposition home or self-care (01) ==
LOC: EC 21:59
DX: K52.9 Noninfective gastroenteritis and colitis, unspecified (principal); E86.0 Dehydration; F41.9 Anxiety disorder, unspecified; F32.A Depression, unspecified; F17.290 Nicotine dependence, other tobacco product, uncomplicated; F12.90 Cannabis use, unspecified, uncomplicated; Z20.822 Contact with and (suspected) exposure to COVID-19
CPT/HCPCS: 99284; 96374; 96375 ×4; 96361 ×3; 36415; 80053; 83615; 83735; 84100; 85025; 86140; 81001; 87635; 71046; J2060; J3360; J2405; J1885; C9113

== ENCOUNTER 2021-05-19 13:20 | Emergency (ER) | payer BC, OTHER ==
[2021-05-19 13:57] VITALS: RESP 20; TEMP 99.3
--- NOTE | 2021-05-19 15:50 | ED ---
General Adult HPI - General Chief complaint: Upper Respiratory Infection Stated complaint: runny nose, cough Time Seen by Provider: 05/19/21 15:21 Source: patient, RN notes reviewed, old records reviewed Mode of arrival: ambulatory Limitations: no limitations - History of Present Illness Initial comments: Patient is a 25-year-old female who presents with her 2 children seeking COVID- 19 testing. She is been having mild upper respiratory symptoms including a runny nose and mild nonproductive cough. Denies any shortness breath, chest pain, abdominal pain, nausea, vomiting, diarrhea. His no other acute complaints at this time. Both of her children have similar symptoms. Covid 19 testing was obtained in triage and I evaluated the patient and she was placed in a room. - Related Data Home Medications Medication Instructions Recorded Confirmed DULoxetine HCL [Cymbalta] 60 mg PO HS 08/17/18 06/11/20 Pediatric Multivitamin No.144 2 each PO DAILY 05/30/20 06/11/20 [Children's Chewable Vitamin] Famotidine [Pepcid] 1 tab PO DAILY 06/11/20 06/11/20 Ferrous Sulfate [Iron] 1 tab PO HS 06/11/20 06/11/20 Previous Rx's Medication Instructions Recorded Ibuprofen [Motrin] 600 mg PO Q8HR PRN #20 tab 12/17/20 predniSONE 50 mg PO DAILY #5 tab 12/17/20 Ibuprofen [Motrin] 600 mg PO Q8HR PRN #20 tab 02/05/21 Penicillin V Potassium [Pen Vee K] 500 mg PO QID #40 tablet 02/05/21 Allergies Allergy/AdvReac Type Severity Reaction Status Date / Time No Known Allergies Allergy Verified 05/19/21 13:55 Review of Systems ROS Statement: Those systems with pertinent positive or pertinent negative responses have been documented in the HPI. Review of Systems: CONST: Denies fever EYES: Denies blurry vision ENT: Endorses nasal congestion C/V: Denies Chest pain RESP: Denies shortness of breath GI: Denies abdominal pain : Denies dysuria SKIN: Denies rash. MSK: Denies joint pain. NEURO: Denies headache ROS Other: All systems not noted in ROS Statement are negative. Past Medical History Past Medical History: No Reported History Additional Past Medical History / Comment(s): SCOLIOSIS History of Any Multi-Drug Resistant Organisms: None Reported Past Surgical History: No Surgical Hx Reported Additional Past Surgical History / Comment(s): leep Past Anesthesia/Blood Transfusion Reactions: No Reported Reaction Additional Past Anesthesia/Blood Transfusion Reaction / Comment(s): NEVER HAD ANESTH. Past Psychological History: Anxiety, Bipolar, Depression Smoking Status: Vaper Past Alcohol Use History: None Reported Past Drug Use History: None Reported, Marijuana - Past Family History Mother Additional Family Medical History / Comment(s): Multiple Sclerosis. Cervical cancer General Exam - General Exam Comments Initial Comments: General: Appears in no acute distress. HEAD: Normal with no signs of head trauma. EYES: EOMI ENT: Hearing grossly intact, normal oropharynx. RESPIRATORY: Clear breath sounds bilaterally. No wheezes, rales, or rhonchi. No hypoxia. No increased work of breathing. C/V: Regular rate and rhythm. S1 and S2 auscultated, no edema, peripheral pulses 2+ and intact throughout ABD: Abd is soft, nontender, nondistended EXT: Normal range of motion, no obvious deformity SKIN: No rashes or lesions observed on exposed skin. NEURO: Oriented 4. Limitations: no limitations Course Vital Signs 05/19/21 05/19/21 13:55 15:58 Temperature 99.3 F Pulse Rate 100 96 Respiratory 20 20 Rate Blood Pressure 114/81 124/78 O2 Sat by Pulse 97 99 Oximetry Medical Decision Making - Medical Decision Making Based on the patient's presentation and physical exam, patient presents for COVID-19 testing. COVID-19 test is negative. She otherwise has no other symptoms. She likely has a viral URI. I did discuss with patient she was in agreement this plan. I believe it is safe for her to be discharged home. I instructed the patient to follow up with their PCP in the next 3 days. I explained that the patient should return to the emergency department if they experience any worsening symptoms. Strict return precautions were discussed with the patient. The patient expressed understanding of these instructions. I answered all questions that the patient had. The patient was discharged home in good condition with their prescriptions and follow up information. - Lab Data Lab Results 05/19/21 Range/Units 13:58 Coronavirus (PCR) Not Detected (Not Detectd) Disposition Clinical Impression: URI (upper respiratory infection) Disposition: HOME SELF-CARE Condition: Good Instructions (If sedation given, give patient instructions): Upper Respiratory Infection (ED) Is patient prescribed a controlled substance at d/c from ED?: No Referrals: Marta Davies MD [Primary Care Provider] - 1-2 days
[2021-05-19 16:00] VITALS: BP 124/78; PULSE 96
== END 2021-05-19 16:00 | disposition home or self-care (01) ==
LOC: EC 13:20
DX: J06.9 Acute upper respiratory infection, unspecified (principal); M41.9 Scoliosis, unspecified; F41.9 Anxiety disorder, unspecified; F31.9 Bipolar disorder, unspecified; F17.290 Nicotine dependence, other tobacco product, uncomplicated; F12.90 Cannabis use, unspecified, uncomplicated
CPT/HCPCS: 87635; 99283